=== PATIENT | male | born 1945 | race Hispanic/Latino ===

== ENCOUNTER 2021-05-12 19:44 | Inpatient (IN) | payer OTHER ==
[2021-05-12 20:34] LABS: Protime INR 1.19
[2021-05-12 20:47] LABS: Absolute Lymphocytes (CBC) 2.2 K/uL (0.7-4.9); Basophils % 0.8 % (0-1.3); Hematocrit 34.6 % (39.6-49.0); Lymphocytes % 21.2 % (15.3-44.8); MPV 7.9 fL (7.6-11.3); RBC Red Blood Cell Count 3.86 M/uL (4.33-5.43)
[2021-05-12] MEDS ORDERED: ALBUTEROL 2.5 MG/3 ML NEB SOL ONE (20:48)
[2021-05-12] MEDS ORDERED: IPRATROPIUM BROM 0.5MG/2.5ML ONE (20:48)
[2021-05-12 20:49] LABS: ALT/SGPT 47 U/L (12-78); AST/SGOT 35 U/L (15-37); Alkaline Phosphatase 88 U/L (45-117); BUN Blood Urea Nitrogen 10 mg/dL (7-18); Bicarbonate 24 mmol/L (21-32); Bilirubin Direct 0.1 mg/dL (0-0.2); Bilirubin Total 0.4 mg/dL (0.2-1.0); Glucose Level 118 mg/dL (74-106); Magnesium 2.7 mg/dL (1.8-2.4); NT PRO-BNP 218 pg/mL (<450); Potassium 3.8 mmol/L (3.5-5.1); Protein, Total 7.9 g/dL (6.4-8.2); Sodium Level 136 mmol/L (136-145); Troponin (Emerg Dept Use Only) < 0.02 ng/mL (0.0-0.045)
--- NOTE | 2021-05-12 21:41 | RAD REPORT ---
EXAM DESCRIPTION: Kayy Single View05/12/2021 9:24 pm CLINICAL HISTORY: Cough COMPARISON: 2016 FINDINGS: The lungs appear clear of acute infiltrate. The heart is normal size IMPRESSION: No acute abnormalities displayed
[2021-05-12] MEDS ORDERED: METHYLPREDNISOLONE 125 MG INJ ONE (22:29)
[2021-05-12] MEDS ORDERED: NA CHLORIDE 0.9% 1,000 ML ONE (22:44)
[2021-05-13] MEDS ORDERED: IPRATROPIUM BROM 0.5MG/2.5ML ONE (00:40)
[2021-05-13] MEDS ORDERED: ALBUTEROL 2.5 MG/3 ML NEB SOL ONE (00:40)
[2021-05-13] MEDS ORDERED: MAGNESIUM SULFATE 1 gm IVPB 1 GM/100 ML BAG IV ONE (00:56)
--- NOTE | 2021-05-13 01:19 | ER ---
Nurse's Notes [facility] Name: Kalen Pinedo Age: 76 yrs Sex: Male : 1945 Arrival Date: 05/12/2021 Time: 19:47 Bed 19 Private MD: Diagnosis: Dyspnea, unspecified Presentation: 05/12 19:54 Chief complaint: Patient states: cough and SOB x 2 weeks. 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 Coronavirus screen: Client denies travel out of the [place] in the last 14 days. cough unrelated to allergies, shortness of breath, Client presents with at least one sign or symptom that may indicate coronavirus-19. Standard/surgical mask placed on the client. Provider contacted for isolation considerations. Ebola Screen: Patient negative for fever greater than or equal to 101.5 degrees Fahrenheit, and additional compatible Ebola Virus Disease symptoms Patient denies exposure to infectious person. Patient denies travel to an Ebola-affected area in the 21 days before illness onset. No symptoms or risks identified at this time. Initial Sepsis Screen: Does the patient meet any 2 criteria? No. Patient's initial sepsis screen is negative. Does the patient have a suspected source of infection? No. Patient's initial sepsis screen is negative. Risk Assessment: Do you want to hurt yourself or someone else? Patient reports no desire to harm self or others. Onset of symptoms was May 12, 2021. 19:54 Method Of Arrival: Wheelchair ca1 19:54 Acuity: ARELY 3 ca1 Triage Assessment: 20:00 General: Appears in no apparent distress. Behavior is calm, cooperative. Respiratory: ak2 Reports cough that is Onset: The symptoms/episode began/occurred suddenly, the patient has mild shortness of breath. Historical: - Allergies: 19:56 No Known Allergies; ca1 - PMHx: 19:56 Hypertensive disorder; ca1 - Immunization history:: Client reports having NOT received the Covid vaccine. Pneumococcal vaccine is up to date, Flu vaccine is up to date. - Social history:: Smoking status: Patient denies any tobacco usage or history of. Screenin:59 Abuse screen: Denies threats or abuse. Denies injuries from another. Abuse screen: ak2 Denies threats or abuse. Nutritional screening: No deficits noted. Tuberculosis screening: No symptoms or risk factors identified. Fall Risk None identified. Assessment: 20:00 Pain: Denies pain. Cardiovascular: Rhythm is. Respiratory: Airway is patent Respiratory ak2 effort is even, unlabored, 22:03 Reassessment: Patient and/or family updated on plan of care and expected duration. Pain ak2 level reassessed. 23:18 Reassessment: Patient and/or family updated on plan of care and expected duration. Pain ak2 level reassessed. 05/13 01:46 General: report called to rn. ak2 Vital Signs: 05/12 19:54 BP 148 / 69; Pulse 65; Resp 18 S; Temp 97.6(TE); Pulse Ox 99% on R/A; Weight 81.65 kg ca1 (R); Height 5 ft. 11 in. (180.34 cm) (R); Pain 0/10; 22:03 BP 156 / 78; Pulse 68; Resp 18; Pulse Ox 98% on R/A; ak2 23:20 BP 159 / 83; Pulse 71; Resp 20; Pulse Ox 99% on R/A; ak2 05/13 00:41 BP 164 / 88; Pulse 66; Resp 20; Pulse Ox 100% on Nebulizer Mask; ak2 05/12 19:54 Body Mass Index 25.10 (81.65 kg, 180.34 cm) ca1 ED Course: 05/12 19:47 Patient arrived in ED. am4 19:56 Triage completed. ca1 19:56 Arm band placed on right wrist. ca1 19:57 Arnold Loya MD is Attending Physician. mh7 19:58 Chaitanya Law is Primary Nurse. ak2 19:59 Patient has correct armband on for positive identification. ak2 19:59 No provider procedures requiring assistance completed. ak2 21:24 XRAY Chest (1 view) In Process Unspecified. EDMS 23:10 CT Chest For PE Angio In Process Unspecified. EDMS 05/13 01:18 Kimani Bird MD is Hospitalizing Provider. mh7 Administered Medications: 05/12 20:29 Drug: Albuterol 2.5 mg Route: Inhalation; ak2 20:29 Drug: AtroVENT (ipratropium) Aerosol 0.5 mg Route: Inhalation; ak2 22:10 Drug: SOLU-Medrol (methylPrednisoLONE) 125 mg Route: IVP; Site: right antecubital; ak2 22:20 Drug: NS 0.9% 1000 ml Route: IV; Rate: 1000 ml; Site: right antecubital; ak2 05/13 00:20 Drug: AtroVENT (ipratropium) Aerosol 0.5 mg Route: Inhalation; ak2 00:21 Drug: Albuterol 2.5 mg Route: Inhalation; ak2 00:36 Drug: Magnesium Sulfate 1 grams Route: IVPB; Infused Over: 1 hrs; Site: right ak2 antecubital; Outcome: 01:19 Decision to Hospitalize by Provider. [facility] 01:44 Admitted to [facility] ak2 01:44 Condition: good 02:15 Patient left the ED. ar2 Signatures: Dispatcher [employer] EDMS Lou Card RN RN ca1 Holmes, Maurice, MD MD [facility] Rayna Guerra [facility] Chaitanya Law [facility]
--- NOTE | 2021-05-13 01:20 | EDPHYS ---
Physician Documentation [facility] Name: Kalen Pinedo Age: 76 yrs Sex: Male : 1945 Arrival Date: 05/12/2021 Time: 19:47 Bed 19 Private MD: ED Physician Arnold Loya HPI: 05/12 20:20 This 76 yrs old Male presents to ER via Wheelchair with complaints of mh7 Shortness Of Breath. 20:20 The patient has shortness of breath at rest, with light activity. Onset: The mh7 symptoms/episode began/occurred 2 week(s) ago, and became worse 4 day(s) ago. Duration: The symptoms are intermittent, with no pattern. The patient's shortness of breath is aggravated by coughing, exertion, light activity, is alleviated by nothing. Associated signs and symptoms: Pertinent positives: chest pain, non-productive cough, Pertinent negatives: productive cough, diaphoresis, dizziness, fever, hemoptysis, loss of consciousness, nausea, numbness in extremities, visual changes, vomiting. Severity of symptoms: At their worst the symptoms were moderate 4 day(s) ago, in the emergency department the symptoms are unchanged. Historical: - Allergies: 19:56 No Known Allergies; ca1 - PMHx: 19:56 Hypertensive disorder; ca1 - Immunization history:: Client reports having NOT received the Covid vaccine. Pneumococcal vaccine is up to date, Flu vaccine is up to date. - Social history:: Smoking status: Patient denies any tobacco usage or history of. ROS: 20:20 Constitutional: Negative for fever, chills, and weight loss, Eyes: Negative for injury, mh7 pain, redness, and discharge, ENT: Negative for injury, pain, and discharge, Neck: Negative for injury, pain, and swelling, Abdomen/GI: Negative for abdominal pain, nausea, vomiting, diarrhea, and constipation, Back: Negative for injury and pain, : Negative for injury, bleeding, discharge, and swelling, MS/Extremity: Negative for injury and deformity, Skin: Negative for injury, rash, and discoloration, Neuro: Negative for headache, weakness, numbness, tingling, and seizure, Psych: Negative for depression, anxiety, suicide ideation, homicidal ideation, and hallucinations, Allergy/Immunology: Negative for hives, rash, and allergies, Endocrine: Negative for neck swelling, polydipsia, polyuria, polyphagia, and marked weight changes, Hematologic/Lymphatic: Negative for swollen nodes, abnormal bleeding, and unusual bruising. Exam: 20:20 Constitutional: This is a well developed, well nourished patient who is awake, alert, mh7 and in no acute distress. Head/Face: Normocephalic, atraumatic. Eyes: Pupils equal round and reactive to light, extra-ocular motions intact. Lids and lashes normal. Conjunctiva and sclera are non-icteric and not injected. Cornea within normal limits. Periorbital areas with no swelling, redness, or edema. Neck: Trachea midline, no thyromegaly or masses palpated, and no cervical lymphadenopathy. Supple, full range of motion without nuchal rigidity, or vertebral point tenderness. No Meningismus. Chest/axilla: Normal chest wall appearance and motion. Nontender with no deformity. No lesions are appreciated. Cardiovascular: Regular rate and rhythm with a normal S1 and S2. No gallops, murmurs, or rubs. Normal PMI, no JVD. No pulse deficits. 20:20 Abdomen/GI: Soft, non-tender, with normal bowel sounds. No distension or tympany. No guarding or rebound. No evidence of tenderness throughout. Back: No spinal tenderness. No costovertebral tenderness. Full range of motion. Skin: Warm, dry with normal turgor. Normal color with no rashes, no lesions, and no evidence of cellulitis. MS/ Extremity: Pulses equal, no cyanosis. Neurovascular intact. Full, normal range of motion. Neuro: Awake and alert, GCS 15, oriented to person, place, time, and situation. Cranial nerves II-XII grossly intact. Motor strength 5/5 in all extremities. Sensory grossly intact. Cerebellar exam normal. Normal gait. Psych: Awake, alert, with orientation to person, place and time. Behavior, mood, and affect are within normal limits. 20:20 Respiratory: the patient does not display signs of respiratory distress, Respirations: prolonged exhalation, that is mild, Breath sounds: rhonchi, that are moderate, are heard diffusely, wheezing: expiratory that is mild, is scattered, Respiratory rate: 18 Vital Signs: 19:54 BP 148 / 69; Pulse 65; Resp 18 S; Temp 97.6(TE); Pulse Ox 99% on R/A; Weight 81.65 kg ca1 (R); Height 5 ft. 11 in. (180.34 cm) (R); Pain 0/10; 22:03 BP 156 / 78; Pulse 68; Resp 18; Pulse Ox 98% on R/A; ak2 23:20 BP 159 / 83; Pulse 71; Resp 20; Pulse Ox 99% on R/A; ak2 05/13 00:41 BP 164 / 88; Pulse 66; Resp 20; Pulse Ox 100% on Nebulizer Mask; nm2 05/12 19:54 Body Mass Index 25.10 (81.65 kg, 180.34 cm) ca1 MDM: 01:17 Differential diagnosis: Anemia Anxiety Reaction asthma, Bronchitis CHF exacerbation, mh7 Chronic Obstructive Pulmonary Disease Myocardial Infarction pneumonia, Pneumothorax Psychogenic pulmonary edema, Pulmonary Embolism reactive airway disease. Data reviewed: vital signs, nurses notes, lab test result(s), cardiac enzymes, CBC, electrolytes, EKG, radiologic studies, CT scan, plain films. Data interpreted: Pulse oximetry: on room air is 99 %. Interpretation: normal. Counseling: I had a detailed discussion with the patient and/or guardian regarding: the historical points, exam findings, and any diagnostic results supporting the discharge/admit diagnosis, the presence of at least one elevated blood pressure reading (>120/80) during this emergency department visit, lab results, radiology results, the need for further work-up and treatment in the hospital. Response to treatment: the patient's symptoms have mildly improved after treatment. 01:19 Patient medically screened. [facility] 05/12 20:15 Order name: Basic Metabolic Panel; Complete Time: 21:03 [facility] 05/12 20:15 Order name: CBC with Diff; Complete Time: 21:03 [facility] 05/12 20:15 Order name: LFT's; Complete Time: 21: [facility] 05/12 20:15 Order name: Magnesium; Complete Time: 21: [facility] 05/12 20:15 Order name: NT PRO-BNP; Complete Time: 21: [facility] 05/12 20:15 Order name: PT-INR; Complete Time: 21:03 [facility] 05/12 20:15 Order name: Troponin (emerg Dept Use Only); Complete Time: 21: [facility] 05/12 20:15 Order name: XRAY Chest (1 view); Complete Time: 21:59 [facility] 05/12 20:17 Order name: Influenza Screen (a \T\ B); Complete Time: 21:03 [facility] 05/12 22:03 Order name: SARS-COV-2 RT PCR; Complete Time: 22:04 [facility] 05/12 22:19 Order name: CT Chest For PE Angio [facility] 05/12 20:15 Order name: EKG; Complete Time: 20:16 [facility] 05/12 20:15 Order name: Cardiac monitoring [facility] 05/12 20:15 Order name: EKG - Nurse/Tech [facility] 05/12 20:15 Order name: IV Saline Lock [facility] 05/12 20:15 Order name: Labs collected and sent [facility] 05/12 20:15 Order name: O2 Per Protocol [facility] 05/12 20:15 Order name: O2 Sat Monitoring [facility] Administered Medications: 05/12 20:29 Drug: Albuterol 2.5 mg Route: Inhalation; [facility] 20:29 Drug: AtroVENT (ipratropium) Aerosol 0.5 mg Route: Inhalation; nm2 22:10 Drug: SOLU-Medrol (methylPrednisoLONE) 125 mg Route: IVP; Site: right antecubital; nm2 22:20 Drug: NS 0.9% 1000 ml Route: IV; Rate: 1000 ml; Site: right antecubital; [facility] 05/13 00:20 Drug: AtroVENT (ipratropium) Aerosol 0.5 mg Route: Inhalation; ak2 00:21 Drug: Albuterol 2.5 mg Route: Inhalation; nm2 00:36 Drug: Magnesium Sulfate 1 grams Route: IVPB; Infused Over: 1 hrs; Site: right [facility] antecubital; Disposition Summary: 05/13/21 01:19 Hospitalization Ordered Hospitalization Status: Observation [facility] Provider: Kimani Bird [facility] Location: Telemetry/MedSurg (observation) [facility] Condition: Stable [facility] Problem: an acute exacerbation [facility] Symptoms: have improved [facility] Bed/Room Type: Standard [facility] Room Assignment: 205(05/13/21 01:30) cg Diagnosis - Dyspnea, unspecified [facility] Forms: - Medication Reconciliation Form [facility] - SBAR form [facility] Signatures: Dispatcher [employer] Ángel Ledezma, RN RN Yamile Kumar RN RN cg Lou Card RN RN [facility] Arnold Loya MD MD [facility] Chaitanya Law [facility] Corrections: (The following items were deleted from the chart) 05/12 21:10 20:17 CORONAVIRUS+Z ordered. EDOH EDMS 05/13 01:30 01:19 Paola
[2021-05-13] MEDS ORDERED: ONDANSETRON 4 MG/2 ML VIAL IV PRN (01:51)
[2021-05-13] MEDS: IPRATROPIUM BROM 0.5MG/2.5ML NEB SCH ×4 (02:00→20:20)
[2021-05-13] MEDS: ALBUTEROL 2.5 MG/3 ML NEB SOL NEB SCH ×4 (02:00→20:20)
[2021-05-13 02:30] VITALS: BMI 32.3
--- NOTE | 2021-05-13 02:33 | P.HP ---
Certification for Inpatient Patient admitted to: Observation With expected LOS: <2 Midnights Patient will require the following post-hospital care: None Practitioner: I am a practitioner with admitting privileges, knowledge of patient current condition, hospital course, and medical plan of care. Services: Services provided to patient in accordance with Admission requirements found in Title 42 Section 412.3 of the Code of Federal Regulations Patient History Date of Service: 05/13/21 Primary Care Provider: Kristyn Holland NP Reason for admission: Dyspnea History of Present Illness: 76-year-old male with history of asbestos exposure likely COPD, hypertension presents emergency department for shortness of breath. Patient reports that he has a nebulizer at home that he typically only uses once every week or so but for the past 2-3 weeks he has had to use it on a daily basis. Patient evaluated in the emergency department, labs significant for hemoglobin 9.6 hematocrit 34.6 GFR 65 glucose 118, magnesium 2.7. Patient received IV steroids, nebulizers, magnesium in the emergency department and was still experi encing significant expiratory wheezing and dyspnea. ED provider wishes to admit for further evaluation and management. Allergies NKDA Allergy (Uncoded 12/20/15 17:23) Unknown - Past Medical/Surgical History Has patient received pneumonia vaccine in the past: Yes -: Hypertension -: Asbestos exposure (suspected COPD) -: none Psychosocial/ Personal History: Lives with family - Family History Family History: Reviewed- Non-Contributory - Social History Smoking Status: Never smoker Alcohol use: No CD- Drugs: No Caffeine use: Yes Place of Residence: Home Review of Systems 10-point ROS is otherwise unremarkable Respiratory: Shortness of Breath, SOB with Excertion, Wheezing Physical Examination - Vital Signs Temperature: 97.0 F Blood Pressure: 167/72 Pulse: 70 Respirations: 18 Pulse Ox (%): 96 - Physical Exam General: Alert, In no apparent distress HEENT: Atraumatic, PERRLA, Mucous membr. moist/pink Neck: Supple, 2+ carotid pulse no bruit, No LAD Respiratory: Expiratory wheezes, Other (Tachypneic, dyspnea,) Cardiovascular: Regular rate/rhythm, Normal S1 S2 Gastrointestinal: Normal bowel sounds, No tenderness Musculoskeletal: No tenderness Integumentary: No rashes Neurological: Normal speech, Normal strength at 5/5 x4 extr, Normal tone, Normal affect - Studies Laboratory Data (last 24 hrs) 05/12/21 20:20: PT 13.7 H, INR 1.19 05/12/21 20:20: WBC 10.20, Hgb 11.6 L, Hct 34.6 L, Plt Count 383 05/12/21 20:20: Sodium 136, Potassium 3.8, BUN 10, Creatinine 1.10, Glucose 118 H, Magnesium 2.7 H, Total Bilirubin 0.4, AST 35, ALT 47, Alkaline Phosphatase 88 Microbiology Data (last 24 hrs): 05/12/21 20:20 Nasopharnyx Influenza Type A Antigen Screen - Final 05/12/21 20:20 Nasopharnyx Influenza Type B Antigen Screen - Final Assessment and Plan - Plan Assessment Dyspnea, expiratory wheezing previously exposed to asbestos-suspect underlying COPD with exacerbation Hypertension Plan Dyspnea, expiratory wheezing previously exposed to asbestos-suspect underlying COPD with exacerbation: Continue with IV steroids, inhalers, scheduled nebs, incentive spirometry. Daily room air saturations, anticipate clinical improvement in the next 24-48 hr. DVT prophylaxis with SCDs. Patient need to follow up with pulmonology on outpatient basis for additional evaluation for possibility of underlying COPD. Hypertension: Continue home medications, adjust as necessary. Discharge Plan: Home Plan to discharge in: 24 Hours - Advance Directives Does patient have a Living Will: No Does patient have a Durable POA for Healthcare: No - Code Status/Comfort Care Code Status Assessed: Yes (Full code) Critical Care: No Time Spent Managing Pts Care (In Minutes): 55
[2021-05-13 05:45] LABS: Absolute Lymphocytes (CBC) 0.8 K/uL (0.7-4.9); Basophils % 0.5 % (0-1.3); Lymphocytes % 8.7 % (15.3-44.8); MPV 7.8 fL (7.6-11.3); RBC Red Blood Cell Count 3.98 M/uL (4.33-5.43)
[2021-05-13] MEDS: METHYLPREDNISOLONE 40 MG INJ IV SCH ×3 (05:50→22:10)
[2021-05-13 05:57] LABS: Bilirubin Total 0.4 mg/dL (0.2-1.0); Potassium 4.2 mmol/L (3.5-5.1); Protein, Total 8.4 g/dL (6.4-8.2); Thyroid Stimulating Hormone 0.841 uIU/mL (0.360-3.740)
[2021-05-13 07:29] LABS: Blood Morphology Comment NOT SEEN (NOT SEEN); Platelet Estimate INCR
[2021-05-13] MEDS: DULERA 200/5 (MOMETASONE/FORMOTEROL) INHALER IH SCH ×2 (09:11→20:59)
--- NOTE | 2021-05-13 11:10 | P.PN ---
Date of Service: 05/13/21 feeling slightly better. still SOB on oxygen reports intermittent leg swelling over last several weeks, progressively worsening OLIVER over last 4-6 weeks has been told before that his heart or valve needs to be monitored, he is unsure of specifics, unsure of meds he takes thinks he may have had an echo in the last month at [facility], and told it was ok Physical Exam NAD, AAOx3 PERRL, MMM bilateral faint crackles at bases, on 3 L NC, nonlabored regular rate/rhythm, no edema soft, notnender, nondistended abdomen Problem List acute hypoxemic respiratory failure secondary to acute CHF exacerbation vs COPD exacerbation Hypertension poor historian, denies h/o COPD, denies CHF history, but states dr told him "something about the heart needs to be watched" CTA with b/l small pleural effusions, pericardial effusion echo ordered will give 20mg IV lasix cardiology consulted continue steroids/inhalers/nebs for COPD VTE: lovenox Code: full Dispo: anticipate dc home in 24-48hrs
[2021-05-13] MEDS: lisinopriL 20 MG TAB PO SCH ×2 (12:20→20:58)
[2021-05-13] MEDS: FUROSEMIDE 20 MG/ 2ML VIAL IV SCH (12:20)
[2021-05-13] MEDS: carvediloL 25 MG TAB PO SCH ×2 (12:21→20:57)
--- NOTE | 2021-05-13 12:48 | RAD REPORT ---
EXAM DESCRIPTION: Chest For Pe Angio 05/12/2021 11:35 PM CDT CLINICAL HISTORY: 76 years, Male, Dyspnea;Cough COMPARISON: 12/20/2015. TECHNIQUE: Multiple transaxial tomograms of the chest were obtained from the lung apices through the lung bases utilizing 3 mm slice thickness at 3 mm interval reconstruction after the administration o f large bolus of IV contrast for complete opacification of the pulmonary arteries. Subsequent maximum intensity projection images were generated in the coronal and sagittal plane for r eview. This exam was performed according to our departmental dose-optimization protocol, which includes auto mated exposure control, adjustment of the mA and/or kV according to patient size and/or use of iterat zan reconstruction technique. FINDINGS: The lungs parenchyma demonstrate small trace right pleural effusion with minimal compressi ve atelectatic changes. There is a small left pleural effusion with compressive atelectatic changes. There is a small pericardial effusion measuring at its greatest width anteriorly laterally 14.5 mm. N o masses, nodules and/or consolidations are identified. The trachea mainstem bronchus demonstrate t o be normal. There is no significant pericardial or pleural effusions. The thoracic aorta demonstrate demonstrate to be within normal limits. No significant major dissectio n. Intimal aortic arch calcification extending into the descending portion. The heart is normal in si ze. No evidence for right ventricular strain. There are no significant coronary artery calcifications . There is no significant mediastinal and/or hilar lymphadenopathy. The axillary regions demonstrate to be clear. Pulmonary arteries demonstrate to be normal, no intraluminal defect are seen that would suggest pulmo nary embolus. The bone windows demonstrate mild diffuse bony osteopenia with anterior spondylosis a long the mid/lower thoracic spine. The visualized portions of the upper abdomen demonstrate to be unremarkable. IMPRESSION: No evidence for pulmonary embolism. Small trace right pleural effusion with minimal compressive atelectatic changes. Small left pleural effusion with compressive atelectatic changes. Small pericardial effusion. Electronically signed by: Darrel Mckenzie MD 05/12/2021 11:40 PM CDT Due to temporary technical issues with the PACS/Fluency reporting system, reports are being signed by the in house radiologist without review as a courtesy to ensure prompt reporting. The interpreting r adiologist is fully responsible for the content of the report.
[2021-05-13] MEDS: BENZONATATE 100 MG CAP PO PRN (13:55)
--- NOTE | 2021-05-13 16:07 | EKG ---
Test Date: 2021-05-12 Test Time: 20:05:57 Extrusion Press Adjuster: MEASUREMENT RESULTS: Intervals: Rate: 66 SD: 206 QRSD: 98 QT: 414 QTc: 434 Sodus: P: -3 SD: 206 QRS: 13 T: 33 INTERPRETIVE STATEMENTS: Normal sinus rhythm Normal ECG Compared to ECG 12/20/2015 15:19:58 Right superior axis no longer present Electronically Signed On 05-13-21 16:04:12 CDT by Markus Sellers
[2021-05-14] MEDS: BENZONATATE 100 MG CAP PO PRN ×2 (00:06→09:10)
[2021-05-14] MEDS: ALBUTEROL 2.5 MG/3 ML NEB SOL NEB SCH ×2 (02:10→08:34)
[2021-05-14] MEDS: IPRATROPIUM BROM 0.5MG/2.5ML NEB SCH ×2 (02:10→08:34)
[2021-05-14] MEDS: METHYLPREDNISOLONE 40 MG INJ IV SCH (05:31)
[2021-05-14 06:03] LABS: Absolute Lymphocytes (CBC) 1.4 K/uL (0.7-4.9); Basophils % 0.3 % (0-1.3); Hematocrit 36.1 % (39.6-49.0); Lymphocytes % 6.9 % (15.3-44.8); MPV 7.3 fL (7.6-11.3); RBC Red Blood Cell Count 3.99 M/uL (4.33-5.43)
[2021-05-14 06:15] LABS: Magnesium 2.8 mg/dL (1.8-2.4); Potassium 4.2 mmol/L (3.5-5.1)
--- NOTE | 2021-05-14 08:13 | ECHO ---
HEIGHT: 5 ft 11 in WEIGHT: 232 lb 4.8 oz DATE OF STUDY: 05/13/[address]: Kimani Bird MD 2-DIMENSIONAL: YES M.MODE: YES DOPPLER: YES COLOR FLOW: YES TDS: YES PORTABLE: DEFINITY: BUBBLE STUDY: DIAGNOSIS: CONGESTIVE HEART FAILURE CARDIAC HISTORY: CATHERIZATION: SURGERY: PROSTHETIC VALVE: PACEMAKER: MEASUREMENTS (cm) DIASTOLIC (NORMALS) SYSTOLIC (NORMALS) IVSd 1.2 (0.6-1.2) LA Diam (1.9-4.0) LVEF 69% LVIDd 3.7 (3.5-5.7) LVIDs 2.3 (2.0-3.5) %FS 38% LVPWd 1.4 (0.6-1.2) Ao Diam 3.5 (2.0-3.7) 2 DIMENSIONAL ASSESSMENT: RIGHT ATRIUM: NORMAL LEFT ATRIUM: NORMAL RIGHT VENTRICLE: NORMAL LEFT VENTRICLE: NORMAL TRICUSPID VALVE: NORMAL MITRAL VALVE: NORMAL PULMONIC VALVE: NORMAL AORTIC VALVE: NORMAL PERICARDIAL EFFUSION: NONE AORTIC ROOT: NORMAL LEFT VENTRICULAR WALL MOTION: NORMAL DOPPLER/COLOR FLOW: MILD TRICUSPID REGURGITATION COMMENTS: TECHNICALLY DIFFICULT STUDY. GROSSLY NORMAL LEFT VENTRICULAR SIZE AND FUNCTION. NO EFFUSION. TECHNOLOGIST: GEE RIVERA
[2021-05-14 08:28] VITALS: TEMP 97.8
[2021-05-14] MEDS: DULERA 200/5 (MOMETASONE/FORMOTEROL) INHALER IH SCH (09:00)
[2021-05-14] MEDS: ENOXAPARIN 40 MG/0.4 ML SQ SCH ×2 (09:00→09:09)
[2021-05-14 09:02] VITALS: O2SAT 95
[2021-05-14] MEDS: FUROSEMIDE 20 MG/ 2ML VIAL IV SCH (09:09)
[2021-05-14] MEDS: lisinopriL 20 MG TAB PO SCH (09:09)
[2021-05-14] MEDS: carvediloL 25 MG TAB PO SCH (09:10)
[2021-05-14 09:11] VITALS: BP 169/69
[2021-05-14] MEDS ORDERED: PNEUMOCOCCAL VACCINE 0.5 ML IMVAC ONE (10:00)
--- NOTE | 2021-05-14 10:35 | P.DS ---
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 Patient reports he used his nebulizer without significant improvement. Patient evaluated in the emergency department, labs significant for hemoglobin 9.6 hematocrit 34.6 GFR 65 glucose 118, magnesium 2.7. He was diagnosed with possible COPD and started on IV steroids, nebulizers, magnesium in the emergency department. Patient was still wheezing after treatment in the ED and was therefore admitted for further management. Hospital Course: Patient admitted to the medical floor and treated for COPD exacerbation with IV steroids, scheduled bronchodilators. Chest x-ray demonstrated small pleural effusion and pericardial effusion. Echocardiogram was unremarkable with normal EF. Patient's symptoms resolved with treatment. He is deemed stable for discharge today. Vital Signs/Physical Exam: Temp Pulse Resp BP Pulse Ox 97.8 F 77 18 169/69 H 94 05/14/21 08:00 05/14/21 09:10 05/14/21 08:00 05/14/21 09:10 05/14/21 08:00 General: Alert, In no apparent distress, Oriented x3 HEENT: Mucous membr. moist/pink Neck: JVD not distended Respiratory: Clear to auscultation bilaterally, Normal air movement Cardiovascular: No edema, Regular rate/rhythm, Normal S1 S2 Gastrointestinal: Soft and benign, Non-distended, No tenderness Musculoskeletal: No swelling Integumentary: No rashes Neurological: Normal strength at 5/5 x4 extr Laboratory Data at Discharge: WBC 19.70 K/uL (4.3-10.9) H D 05/14/21 05:40 Hgb 11.9 g/dL (13.6-17.9) L 05/14/21 05:40 Hct 36.1 % (39.6-49.0) L 05/14/21 05:40 Plt Count 473 K/uL (152-406) H 05/14/21 05:40 PT 13.7 SECONDS (9.5-12.5) H 05/12/21 20:20 INR 1.19 05/12/21 20:20 Sodium 138 mmol/L (136-145) 05/14/21 05:40 Potassium 4.2 mmol/L (3.5-5.1) 05/14/21 05:40 BUN 16 mg/dL (7-18) 05/14/21 05:40 Creatinine 1.10 mg/dL (0.55-1.3) 05/14/21 05:40 Glucose 152 mg/dL (74-106) H 05/14/21 05:40 Magnesium 2.8 mg/dL (1.8-2.4) H 05/14/21 05:40 Total Bilirubin 0.4 mg/dL (0.2-1.0) 05/13/21 05:13 AST 25 U/L (15-37) 05/13/21 05:13 ALT 44 U/L (12-78) 05/13/21 05:13 Alkaline Phosphatase 88 U/L (45-117) 05/13/21 05:13 Triglycerides 52 mg/dL (<150) 05/13/21 05:13 Cholesterol 161 mg/dL (<200) 05/13/21 05:13 HDL Cholesterol 37 mg/dL (40-60) L 05/13/21 05:13 Cholesterol/HDL Ratio 4.35 05/13/21 05:13 Home Medications: Carvedilol [Coreg] 1 tab PO BID 05/13/21 Lisinopril [Zestril] 1 tab PO BID 05/13/21 Albuterol Inhaler [Ventolin Inhaler*] 2 puff IH Q6H PRN #1 hfa.aer.ad 05/14/21 Benzonatate [Tessalon Perle*] 100 mg PO Q8H PRN #30 cap 05/14/21 Mometasone/Formoterol [Dulera 200 Mcg/5 Mcg Inhaler] 2 puff IH BID inhaler 05/14/21 Torsemide 10 mg PO DAILY #30 tablet 05/14/21 predniSONE [Deltasone] 40 mg PO DAILY #3 tab 05/14/21 New Medications: predniSONE [Deltasone] 40 mg PO DAILY #3 tab Benzonatate [Tessalon Perle*] 100 mg PO Q8H PRN #30 cap PRN Reason: Cough Torsemide 10 mg PO DAILY #30 tablet Albuterol Inhaler [Ventolin Inhaler*] 2 puff IH Q6H PRN #1 hfa.aer.ad PRN Reason: Shortness Of Breath Diet: AHA Activity: Ad kinsey Followup: ERNA FELICIANO [Primary Care Provider] - 1 Week (call to schedule appointment ) Time spent managing pt's care (in minutes): 28
--- NOTE | 2021-05-14 20:58 | CON ---
Date of Consultation: 05/13/2021 Reason For Consultation: Possible pericardial effusion. History Of Present Illness: Mr. Pinedo is a 76-year-old male with history of hypertension, COPD, a sbestosis, came in with shortness of breath. Has recently had a negative cardiac workup at Dr. Jeremy ward's office. Came in hypertensive with shortness of breath. Denied chest pain, nausea, vomiting, di aphoresis, PND, orthopnea, pedal edema, palpitation, or syncope. He denied any fever or chills or co ugh. Allergies: NONE. Review of Systems: Negative. Social History: Negative. Family History: Negative. Medications: At home include Coreg and Zestril. Physical Examination: Vital Signs: He was hypertensive with blood pressure 182/76. Vital signs otherwise stable, afebrile . HEENT: Negative. Neck: Supple without any bruit. Chest: Clear. Cardiac: Revealed a regular rhythm and rate with an S4 gallops. No murmurs or rubs. Abdomen: Benign. Extremities: Revealed no clubbing, cyanosis, or edema. Diagnostic Data: Fairly unremarkable except for the CT scan showing a possible pericardial effusion. Impression And Plan: 1.Shortness of breath secondary to chronic obstructive pulmonary disease and asbestosis. 2.Hypertension poorly controlled that need to be addressed. 3.Possible pericardial effusion. Echocardiogram is pending. No evidence of pericardial effusion on his physical examination. I will see what the echo shows before making further decisions. FATIMAH/LAURIE Voice ID: [id number] Report ID: [id number]
== END 2021-05-14 13:18 | disposition home or self-care (01) | DRG 190 ==
LOC: ER 19:44 → ERHOLD 05-13 00:31 → 2ND 05-13 01:41 → OBSVTOIN 05-14 07:55
PROVIDERS: ADMIT Hospitalist; ATTEND Hospitalist
DX: J44.1 Chronic obstructive pulmonary disease with (acute) exacerbation (principal); J96.01 Acute respiratory failure with hypoxia; I50.31 Acute diastolic (congestive) heart failure; I31.3 Pericardial effusion (noninflammatory); I11.0 Hypertensive heart disease with heart failure; Z77.090 Contact with and (suspected) exposure to asbestos; Z20.822 Contact with and (suspected) exposure to COVID-19
CPT/HCPCS: 36415; 71045; 71275; 80048; 80053; 80061; 80076; 83735; 83880; 84439; 84443; 84484; 85025; 85610; 87804; 93005; 93306; 94010; 94640; 96374; 96375; 99285; G0378; J1650; J1940; J2920; J2930; J3475; J7030; J7606; Q9967; U0003

== ENCOUNTER 2022-02-26 22:52 | Inpatient (IN) | payer OTHER ==
--- OUTSIDE RECORDS SUMMARY | 2022-02-26 22:55 | XMS REPORT | Continuity of Care Document ---
:1945 [address] [facility] t Address [address] [place] [address] Care Team Providers Name Role Phone TANYA BE Primary Care Physician Unavailable ABUNDIO HARPER Attending Clinician Unavailable RADIOLOGY Attending Clinician Unavailable Radiology Attending Clinician Unavailable Adamaris, Lab Main Attending Clinician Unavailable Stephanie IBARRA Attending Clinician Doctor Unassigned, Name Attending Clinician Unavailable DOUG HARPER Admitting Clinician Unavailable Payers Payer Name Policy Type Policy Number Effective Date Expiration Date S caitie MEDICARE PART A [id number] 2004 \T\ B 00:00:00 Problems Condition Condition Condition Status Onset Resolution Last Treating Co mments Source Name Details Category Date Date Treatment Clinician Date No known No known Disease Unive rs active active ity of problems problems [facility] Allergies, Adverse Reactions, Alerts Allergy Allergy Status Severity Reaction(s) Onset Inactive Treating Comm ents Source Name Type Date Date Clinician NO KNOWN Drug Active Univers ALLERGIE Class ity of S [facility] Social History Social Habit Start Date Stop Date Quantity Comments Source Alcohol intake 2016-12-12 2016-12-12 0 /d [facility] 00:00:00 00:00:00 [facility] Tobacco use and 2016-04-18 2016-04-18 Never used [facility] exposure 00:00:00 00:00:00 [facility] Sex Ass[birth year] [facility] 00:00:00 00:00:00 [facility] Smoking Status Start Date Stop Date Source Never smoker [facility] Medications Ordered Filled Start Stop Current Ordering Indication Dosage Frequency Signature Comments Components Source Medication Medication Date Date Medication? Clinician (SIG) Name Name ASCORBATE Yes Take by Univ ers CALCIUM 6-17 mouth. ity of (VITAMIN C 13:44: [place] ORAL) Medical Branch DIPHENHYDRA Yes Take by Un johana MINE HCL 6-17 mouth. ity of (ALLERGY 13:44: [place] [id number] Medical ORAL) Branch ASCORBATE Yes Take by Univ ers CALCIUM 6-17 mouth. ity of (VITAMIN C 13:44: [place] ORAL) Medical Branch DIPHENHYDRA Yes Take by Un johana MINE HCL 6-17 mouth. ity of (ALLERGY 13:44: [place] [address] Medical ORAL) Branch ASCORBATE Yes Take by Univ ers CALCIUM 6-17 mouth. ity of (VITAMIN C 13:44: [place] ORAL) Medical Branch DIPHENHYDRA Yes Take by Un johana MINE HCL 6-17 mouth. ity of (ALLERGY 13:44: [place] [address] Medical ORAL) Branch maalox/diph Yes 5mL Take 5 mL U nivers enhydrAMINE 6-17 by mouth ity of :lidocaine2 00:00: as needed [place] % viscous 00 for Oral Medica l 1:1:1 mucositis Branch (COMPOUNDED (swish and ) Susp spit). suspension maalox/diph Yes 5mL Take 5 mL U nivers enhydrAMINE 6-17 by mouth ity of :lidocaine2 00:00: as needed [place] % viscous 00 for Oral Medica l 1:1:1 mucositis Branch (COMPOUNDED (swish and ) Susp spit). suspension maalox/diph Yes 5mL Take 5 mL U nivers enhydrAMINE 6-17 by mouth ity of :lidocaine2 00:00: as needed [place] % viscous 00 for Oral Medica l 1:1:1 mucositis Branch (COMPOUNDED (swish and ) Susp spit). suspension Procedures Procedure Date / Time Performed Performing Clinician [facility] e ASSIGNMENT OF BENEFITS 2021-10-17 17:01:45 Doctor Unassigned, No [facility] Name Medical Branch Encounters Start End Encounter Admission Attending Care Care Encounter Source Date/Time Date/Time Type Type Clinicians Facility Department ID 2021-09-05 Outpatient R LEROY, [facility] OPH [id number] [facility] 17:21:48 ABUNDIO ity [facility] 2021-10-17 2021-10-17 Outpatient R RADIOLOGY [facility] [id number] Univers 11:06:02 23:59:00 ity of [facility] 2021-10-17 2021-10-17 Hospital Radiology [facility] [id number] Univers 11:06:02 23:59:00 Encounter CONOR [id number] ity [facility] [id number] [id number] [facility] [address] 2021-10-17 2021-10-17 Outpatient R RADIOLOGY [facility] [id number] Univers 11:15:00 11:15:00 [id number] ity [facility] 2021-10-17 2021-10-17 Refining Supervisor Adamaris, Adc Lab Main [facility] 1.2.8 [id number] Univers 11:00:00 11:15:00 Visit Abundio Brown [id number] ity [facility] [id number] [phone] Ca dical NAL [facility] 2021-10-17 2021-10-17 Orders Doctor PATRICK [id number] Univers 00:00:00 00:00:00 Only Unassigned, ANABELLE [id number] ity of [place] [facility] [id number] [place] as [id number] [facility] 009 Branch 2021-09-10 2021-09-10 Outpatient R LEROY, [facility] [id number] Univers 15:00:00 15:00:00 ABUNDIO [id number] ity of [facility] 2021-09-10 2021-09-10 Outpatient R LEROY, [facility] [id number] Univers 15:00:00 15:00:00 ABUNDIO derek [facility] Results This patient has no known results.
[2022-02-26] MEDS ORDERED: NA CHLORIDE 0.9% 1,000 ML ONE (23:49)
[2022-02-27 00:20] LABS: Absolute Lymphocytes (CBC) 2.5 K/uL (0.7-4.9); Hematocrit 39.4 % (39.6-49.0); Lymphocytes % 17.4 % (15.3-44.8); MPV 6.5 fL (7.6-11.3); RBC Red Blood Cell Count 4.72 M/uL (4.33-5.43)
[2022-02-27 00:21] LABS: Protime INR 0.97
[2022-02-27 00:41] LABS: Albumin 3.8 g/dL (3.4-5.0); Bilirubin Direct 0.2 mg/dL (0-0.2); Bilirubin Total 0.5 mg/dL (0.2-1.0); Magnesium 1.7 mg/dL (1.8-2.4); Potassium 3.9 mmol/L (3.5-5.1); Protein, Total 8.3 g/dL (6.4-8.2); Troponin High Sensitivity 8.1 pg/mL (<58.9)
--- NOTE | 2022-02-27 00:48 | ER ---
Nurse's Notes [facility] Name: Kalen Pinedo Age: 77 yrs Sex: Male : 1945 Arrival Date: 02/26/2022 Time: 22:53 Bed 4 Private MD: Diagnosis: Repeated falls;Unspecified injury of head, initial encounter;Hypo-osmolality and hyponatremia;Weakness;Hypomagnesemia Presentation: 02/26 23:26 Chief complaint: Patient's son or daughter states: pt had a fell from standing as6 position. positive LOC, positive nausea and vomiting. Coronavirus screen: At this time, the client does not indicate any symptoms associated with coronavirus-19. Ebola Screen: No symptoms or risks identified at this time. Initial Sepsis Screen: Does the patient meet any 2 criteria? No. Patient's initial sepsis screen is negative. Does the patient have a suspected source of infection? No. Patient's initial sepsis screen is negative. Risk Assessment: Do you want to hurt yourself or someone else? Patient reports no desire to harm self or others. Onset of symptoms was February 26, 2022. 23:26 Method Of Arrival: Wheelchair as6 23:26 Acuity: ARELY 3 as6 23:40 Care prior to arrival: None. Mechanism of Injury: Fall from standing position. Trauma as6 event details: Injury occurred in the [facility]. Trauma Activation: Not Applicable Physician: ED Physician; Name: ; Notified At: ; Arrived At: Physician: General Surgeon; Name: ; Notified At: ; Arrived At: Physician: Radiology; Name: ; Notified At: ; Arrived At: Physician: Respiratory; Name: ; Notified At: ; Arrived At: Physician: Lab; Name: ; Notified At: ; Arrived At: Historical: - Allergies: 23:37 No Known Allergies; as6 - Home Meds: 23:37 albuterol sulfate 0.63 mg/3 mL Nebulizer nebu [Active]; carvedilol 25 mg oral tab 1 tab as6 2 times per day [Active]; cetirizine 10 mg oral tab 1 tab once daily [Active]; hydrochlorothiazide 12.5 mg Oral cap 1 cap once daily [Active]; lisinopril 40 mg Oral tab 1 tab once daily [Active]; - PMHx: 23:37 Hypertensive disorder; as6 - Immunization history:: Client reports having NOT received the Covid vaccine. - Social history:: Smoking status: Patient denies any tobacco usage or history of. - Immunization history: Last tetanus immunization: unknown. - Family history:: not pertinent. Screenin/28 00:13 Abuse screen: Denies threats or abuse. Denies injuries from another. Nutritional as6 screening: No deficits noted. Tuberculosis screening: No symptoms or risk factors identified. Fall Risk Fall in past 12 months (25 points). IV access (20 points). Total Wilkerson Fall Scale indicates High Risk Score (45 or more points). Frequent Obs/Assessments Occuring Family Present and informed to notify staff if the need to leave the bedside As available patient and family educated on Fall Prevention Program and Strategies. Primary Survey: 00:12 NO uncontrolled hemorrhage observed. A: The patient is alert. Airway: patent. as6 Breathing/Chest: Respiratory pattern: regular, Respiratory effort: spontaneous, unlabored. Circulation: Skin color: pink, Skin temperature: warm. Disability Verbal Stimuli. Exposure/Environment: All clothing and personal items were removed. A warming method has been applied: A warm blanket has been provided to the patient. Reassessment Airway Airway Breathing/Chest Respiratory pattern Regular Respiratory effort Spontaneous Unlabored Circulation Pulses Palpable Disability Alert. Assessment: 00:11 General: Appears uncomfortable, Behavior is calm, cooperative, drowsy. Pain: Complains as6 of pain in face and forehead. Neuro: Level of Consciousness is obeys commands, lethargic, Oriented to person, place, time. Cardiovascular: Capillary refill < 3 seconds Patient's skin is warm and dry. Respiratory: Respiratory effort is even, unlabored, Respiratory pattern is regular, symmetrical. Derm: hematoma to left side of forehead. Vital Signs: 02/26 23:26 BP 186 / 68; Pulse 65 MON; Resp 18 S; Temp 97.8(O); Pulse Ox 100% on R/A; Weight 99.79 as6 kg (R); Height 5 ft. 11 in. (180.34 cm) (R); Pain 8/10; 02/27 01:00 BP 170 / 68; Pulse 67; Resp 21 S; Pulse Ox 98% on R/A; as6 02:00 BP 178 / 95; Pulse 69; Resp 17 S; Pulse Ox 100% on R/A; oe 03:00 BP 183 / 70; Pulse 73; Resp 18; Pulse Ox 98% on R/A; oe 04:00 BP 176 / 82; Pulse 72; Resp 18; Pulse Ox 93% on R/A; oe 05:00 BP 202 / 81; Pulse 79; Resp 11 S; Pulse Ox 96% on R/A; as6 02/26 23:26 Body Mass Index 30.68 (99.79 kg, 180.34 cm) as6 Xavi Coma Score: 02/26 23:37 Eye Response: spontaneous(4). Verbal Response: oriented(5). Motor Response: obeys krish commands(6). Total: 15. 02/27 00:14 Eye Response: to voice(3). Verbal Response: oriented(5). Motor Response: obeys as6 commands(6). Total: 14. Trauma Score (Adult): 00:14 Eye Response: to voice(0); Verbal Response: oriented(1); Motor Response: obeys as6 commands(2); Systolic BP: > 89 mm Hg(4); Respiratory Rate: 10 to 29 per min(4); Xavi Score: 14; Trauma Score: 11 ED Course: 02/26 22:53 Patient arrived in ED. kz 23:13 Julio Interiano, RN is Primary Nurse. as 23:14 Vinayak Bhatt MD is Attending Physician. [facility] 23:37 Triage completed. as6 23:40 Arm band placed on. 02/27 00:02 Inserted saline lock: 20 gauge in right antecubital area, using aseptic technique. as6 Blood collected. 00:09 SARS-COV-2 RT PCR (Document "Date of Onset" if Symptomatic) Sent. 00:09 Troponin HS Sent. as6 00:10 PT-INR Sent. as 00:10 NT PRO-BNP Sent. 00:10 Magnesium Sent. 00:10 LFT's Sent. 00:10 CBC with Diff Sent. 00:10 Basic Metabolic Panel Sent. 00:14 Placed in gown. Bed in low position. Call light in reach. Side rails up X2. Adult w/ as6 patient. quality assurance monitor on. Pulse ox on. NIBP on. 00:14 Patient maintains SpO2 saturation greater than 95% on room air. Thermoregulation: warm as6 blanket given to patient. 00:16 XRAY Chest (1 view) In Process Unspecified. EDMS 00:46 Frances Wakefield MD is Hospitalizing Provider. krish 01:44 Head C Spine Mpr Wo Con In Process Unspecified. EDMS 05:55 No provider procedures requiring assistance completed. Patient admitted, IV remains in as6 place. Administered Medications: 00:44 Discontinued: NS 0.9% 1000 ml IV at 125 ml/hr continuous krish 00:09 Drug: NS 0.9% 1000 ml Route: IV; Rate: 125 ml/hr; Site: right antecubital; as6 02:03 Follow up: Response: No adverse reaction; IV Status: Order to discontinue infusion; IV as6 Intake: 150ml 02:02 Drug: Magnesium Sulfate 1 grams Route: IVPB; Infused Over: 1 hrs; Site: right as6 antecubital; 05:55 Follow up: Response: No adverse reaction; IV Status: Completed infusion; IV Intake: as6 100ml 02:03 Drug: NS 0.9% 500 ml Route: IV; Rate: bolus; Site: right antecubital; as6 05:55 Follow up: Response: No adverse reaction; IV Status: Completed infusion; IV Intake: as6 500ml 02:03 Drug: NS 0.9% 1000 ml Route: IV; Rate: 75 ml/hr; Site: right antecubital; as6 05:56 Follow up: IV Status: Infusion continued upon admission as6 02:03 Drug: SOLU-Medrol (methylPrednisoLONE) 125 mg Route: IVP; Site: right antecubital; as6 05:56 Follow up: Response: No adverse reaction as6 02:03 Drug: Albuterol 2.5 mg Route: Inhalation; as6 02:03 Drug: Albuterol 2.5 mg Route: Inhalation; as6 Intake: 00:14 PO: 50ml (Water); Total: 50ml. as6 02:03 IV: 150ml; Total: 200ml. as6 05:55 IV: 100ml; Total: 300ml. as6 05:55 IV: 500ml; Total: 800ml. as6 Outcome: 00:48 Decision to Hospitalize by Provider. krish 02:26 Patient's length of stay in the Emergency Department was greater than 2 hours. as6 Patient's length of stay was extended due to no available ICU beds in the hospital. Patient's length of stay was extended due to staffing issues within the emergency department. 05:55 Admitted to ER Hold. Please see [facility] for further documentation. as6 05:55 Condition: stable 05:55 Instructed on the need for admit. 17:52 Patient left the ED. ll1 Signatures: Dispatcher [employer] EDMS Vinayak Bhatt MD MD cha Espinosa, [place] oe Steff Guerra RN RN ll1 Julio Interiano RN RN as6 Yulissa Forrester Corrections: (The following items were deleted from the chart) 04:21 02:27 BP 178 / 95; Pulse 69bpm; Resp 17bpm; Spontaneous; Pulse Ox 100% RA; as6 oe
--- NOTE | 2022-02-27 00:49 | EDPHYS ---
Physician Documentation [facility] Name: Kalen Pinedo Age: 77 yrs Sex: Male : 1945 Arrival Date: 02/26/2022 Time: 22:53 Bed 4 Private MD: ED Physician Vinayak Bhatt HPI: 02/26 23:31 This 77 yrs old Male presents to ER via Unassigned with complaints of Fall krish Injury. 23:31 Details of fall: The patient fell from an upright position, while walking. Onset: The krish symptoms/episode began/occurred 3 day(s) ago. Associated injuries: The patient sustained injury to the head, contusion. Severity of symptoms: At their worst the symptoms were mild, moderate, in the emergency department the symptoms are unchanged. The patient has experienced a previous episode. Historical: - Allergies: 23:37 No Known Allergies; as6 - Home Meds: 23:37 albuterol sulfate 0.63 mg/3 mL Nebulizer nebu [Active]; carvedilol 25 mg oral tab 1 tab as6 2 times per day [Active]; cetirizine 10 mg oral tab 1 tab once daily [Active]; hydrochlorothiazide 12.5 mg Oral cap 1 cap once daily [Active]; lisinopril 40 mg Oral tab 1 tab once daily [Active]; - PMHx: 23:37 Hypertensive disorder; as6 - Immunization history:: Client reports having NOT received the Covid vaccine. - Social history:: Smoking status: Patient denies any tobacco usage or history of. - Immunization history: Last tetanus immunization: unknown. - Family history:: not pertinent. ROS: 23:35 Constitutional: Negative for fever, chills, and weight loss, Eyes: Negative for injury, krish pain, redness, and discharge, ENT: Negative for injury, pain, and discharge, Neck: Negative for injury, pain, and swelling, Cardiovascular: Negative for chest pain, palpitations, and edema, Respiratory: Negative for shortness of breath, cough, wheezing, and pleuritic chest pain, Abdomen/GI: Negative for abdominal pain, nausea, vomiting, diarrhea, and constipation, Back: Negative for injury and pain, : Negative for injury, bleeding, discharge, and swelling, MS/Extremity: Negative for injury and deformity, Skin: Negative for injury, rash, and discoloration, Psych: Negative for depression, anxiety, suicide ideation, homicidal ideation, and hallucinations, Allergy/Immunology: Negative for hives, rash, and allergies, Endocrine: Negative for neck swelling, polydipsia, polyuria, polyphagia, and marked weight changes, Hematologic/Lymphatic: Negative for swollen nodes, abnormal bleeding, and unusual bruising. 23:35 Neuro: Positive for headache, of the forehead. Exam: 23:35 Constitutional: This is a well developed, well nourished patient who is awake, alert, krish and in no acute distress. Eyes: Pupils equal round and reactive to light, extra-ocular motions intact. Lids and lashes normal. Conjunctiva and sclera are non-icteric and not injected. Cornea within normal limits. Periorbital areas with no swelling, redness, or edema. ENT: Nares patent. No nasal discharge, no septal abnormalities noted. Tympanic membranes are normal and external auditory canals are clear. Oropharynx with no redness, swelling, or masses, exudates, or evidence of obstruction, uvula midline. Mucous membranes moist. Neck: Trachea midline, no thyromegaly or masses palpated, and no cervical lymphadenopathy. Supple, full range of motion without nuchal rigidity, or vertebral point tenderness. No Meningismus. Chest/axilla: Normal chest wall appearance and motion. Nontender with no deformity. No lesions are appreciated. Cardiovascular: Regular rate and rhythm with a normal S1 and S2. No gallops, murmurs, or rubs. Normal PMI, no JVD. No pulse deficits. Respiratory: Lungs have equal breath sounds bilaterally, clear to auscultation and percussion. No rales, rhonchi or wheezes noted. No increased work of breathing, no retractions or nasal flaring. Abdomen/GI: Soft, non-tender, with normal bowel sounds. No distension or tympany. No guarding or rebound. No evidence of tenderness throughout. Back: No spinal tenderness. No costovertebral tenderness. Full range of motion. Male : Normal genitalia with no discharge or lesions. Skin: Warm, dry with normal turgor. Normal color with no rashes, no lesions, and no evidence of cellulitis. 23:35 Neuro: Orientation: is normal, appropriate for stated age, no acute changes, Mentation: is normal, appropriate for stated age, no acute changes, Memory: is normal, appropriate for stated age, no acute changes, Cranial nerves: grossly normal, is grossly normal based on the patient's age, no acute changes, Cerebellar function: is grossly normal, is grossly normal based on the patient's age, no acute changes, Motor: is normal, is grossly normal based on the patient's age, no acute changes, moves all fours, Gait: not tested. seizure activity, is not displayed by the patient. 02/27 00:49 ECG was reviewed by the Attending Physician. [facility] Vital Signs: 02/26 23:26 BP 186 / 68; Pulse 65 MON; Resp 18 S; Temp 97.8(O); Pulse Ox 100% on R/A; Weight 99.79 as6 kg (R); Height 5 ft. 11 in. (180.34 cm) (R); Pain 8/10; 02/27 01:00 BP 170 / 68; Pulse 67; Resp 21 S; Pulse Ox 98% on R/A; as6 02:00 BP 178 / 95; Pulse 69; Resp 17 S; Pulse Ox 100% on R/A; oe 03:00 BP 183 / 70; Pulse 73; Resp 18; Pulse Ox 98% on R/A; oe 04:00 BP 176 / 82; Pulse 72; Resp 18; Pulse Ox 93% on R/A; oe 05:00 BP 202 / 81; Pulse 79; Resp 11 S; Pulse Ox 96% on R/A; as6 02/26 23:26 Body Mass Index 30.68 (99.79 kg, 180.34 cm) as6 [place] Coma Score: 02/26 23:37 Eye Response: spontaneous(4). Verbal Response: oriented(5). Motor Response: obeys krish commands(6). Total: 15. 02/27 00:14 Eye Response: to voice(3). Verbal Response: oriented(5). Motor Response: obeys as6 commands(6). Total: 14. Trauma Score (Adult): 00:14 Eye Response: to voice(0); Verbal Response: oriented(1); Motor Response: obeys as6 commands(2); Systolic BP: > 89 mm Hg(4); Respiratory Rate: 10 to 29 per min(4); Xavi Score: 14; Trauma Score: 11 MDM: 02/26 23:14 Patient medically screened. [facility] 23:37 Differential diagnosis: Contusion of Hematoma on Intracranial bleed- Concussion without krish LOC. cerebral contusion. Differential diagnosis: closed head injury, contusion, fracture, laceration, multiple trauma, sprain, strain. Data reviewed: vital signs, nurses notes, lab test result(s), EKG, radiologic studies, CT scan, plain films. Data interpreted: customer program manager: rate is 69 beats/min, rhythm is regular, Pulse oximetry: on room air is 100 %. Test interpretation: by ED physician or midlevel provider: ECG, plain radiologic studies. Counseling: I had a detailed discussion with the patient and/or guardian regarding: the historical points, exam findings, and any diagnostic results supporting the discharge/admit diagnosis, lab results, radiology results, the need for outpatient follow up. 02/26 23:35 Order name: Basic Metabolic Panel; Complete Time: 00:45 [facility] 02/26 23:35 Order name: CBC with Diff; Complete Time: 00:45 [facility] 02/26 23:35 Order name: LFT's; Complete Time: 00:45 [facility] 02/26 23:35 Order name: Magnesium; Complete Time: 00:45 [facility] 02/26 23:35 Order name: NT PRO-BNP; Complete Time: 00:45 [facility] 02/26 23:35 Order name: PT-INR; Complete Time: 00:30 [facility] 02/26 23:35 Order name: Troponin HS; Complete Time: 00:45 [facility] 02/26 23:35 Order name: SARS-COV-2 RT PCR (Document "Date of Onset" if Symptomatic); Complete Time: [facility] 01:02/27 00:44 Order name: Urine Sodium Random [facility] 02/27 00:44 Order name: Osmolality, Serum [facility] 02/27 00:44 Order name: Urine Osmolality [facility] 02/27 00:50 Order name: Cortisol tw5 02/27 00:50 Order name: TSH tw5 02/27 02:00 Order name: Urine Microscopic Only la1 02/26 23:35 Order name: XRAY Chest (1 view) [facility] 02/27 00:52 Order name: Head C Spine Mpr Wo Con [facility] 02/27 02:04 Order name: Urine Dipstick-Ancillary [facility] 02/27 03:21 Order name: Urine Microscopic Only [facility] 02/27 04:58 Order name: Basic Metabolic Panel [facility] 02/27 04:58 Order name: Magnesium [facility] 02/27 10:13 Order name: Basic Metabolic Panel [facility] 02/27 14:23 Order name: Basic Metabolic Panel [facility] 02/26 23:35 Order name: EKG; Complete Time: 23:37 [facility] 02/26 23:35 Order name: Cardiac monitoring; Complete Time: 23:40 [facility] 02/26 23:35 Order name: EKG - Nurse/Tech; Complete Time: 00:09 [facility] 02/26 23:35 Order name: IV Saline Lock; Complete Time: 00:09 [facility] 02/26 23:35 Order name: Labs collected and sent; Complete Time: 00: [facility] 02/26 23:35 Order name: O2 Per Protocol; Complete Time: 23:40 [facility] 02/26 23:35 Order name: O2 Sat Monitoring; Complete Time: 23:40 [facility] 02/26 23:35 Order name: Urine Dipstick-Ancillary (obtain specimen); Complete Time: 02:03 [facility] 02/26 23:35 Order name: Ice pack; Complete Time: 00:09 [facility] 02/27 00:48 Order name: Seizure Precautions; Complete Time: 02:02 [facility] EC/28 00:49 Rate is 66 beats/min. Rhythm is regular. QRS [place] is Normal. VT interval is normal. QRS krish interval is normal. QT interval is normal. No Q waves. T waves are Normal. No ST changes noted. Clinical impression: NSR w/ Non-specific ST/T Changes and No evidence of ischemia. Interpreted by me. Reviewed by me. Administered Medications: 00:44 Discontinued: NS 0.9% 1000 ml IV at 125 ml/hr continuous krish 00:09 Drug: NS 0.9% 1000 ml Route: IV; Rate: 125 ml/hr; Site: right antecubital; as6 02:03 Follow up: Response: No adverse reaction; IV Status: Order to discontinue infusion; IV as6 Intake: 150ml 02:02 Drug: Magnesium Sulfate 1 grams Route: IVPB; Infused Over: 1 hrs; Site: right as6 antecubital; 05:55 Follow up: Response: No adverse reaction; IV Status: Completed infusion; IV Intake: as6 100ml 02:03 Drug: NS 0.9% 500 ml Route: IV; Rate: bolus; Site: right antecubital; as6 05:55 Follow up: Response: No adverse reaction; IV Status: Completed infusion; IV Intake: as6 500ml 02:03 Drug: NS 0.9% 1000 ml Route: IV; Rate: 75 ml/hr; Site: right antecubital; as6 05:56 Follow up: IV Status: Infusion continued upon admission as6 02:03 Drug: SOLU-Medrol (methylPrednisoLONE) 125 mg Route: IVP; Site: right antecubital; as6 05:56 Follow up: Response: No adverse reaction as6 02:03 Drug: Albuterol 2.5 mg Route: Inhalation; 02:03 Drug: Albuterol 2.5 mg Route: Inhalation; as6 Disposition Summary: 02/27/22 00:48 Hospitalization Ordered Hospitalization Status: Inpatient Admission krish Provider: Frances Wakefield cha Condition: Fair krish Problem: new krish Symptoms: have improved krish Bed/Room Type: Standard krish Location: Telemetry/MedSurg (Inpatient)(02/27/22 16:33) ja1 Room Assignment: [facility](02/27/22 16:33) ja Diagnosis - Repeated falls krsih - Unspecified injury of head, initial encounter krish - Hypo-osmolality and hyponatremia krish - Weakness krish - Hypomagnesemia krish Forms: - Medication Reconciliation Form krish - SBAR form krish Signatures: Dispatcher [employer] EDMS Vinayak Bhatt MD MD cha Attema, Lee, FORESTRY CONSULTANT-C FORESTRY CONSULTANT-Cla1 Santiago Pickett RN RN ja1 Chantelle Moses RN RN eb1 Julio Interiano RN RN as6 Corrections: (The following items were deleted from the chart) 01:48 00:48 Telemetry/MedSurg (Inpatient) krish eb1 01:48 00:48 krish eb1 16:33 01:48 [facility] ER HOLD eb1 ja1 16:33 01:48 ERHOLD- eb1 ja
[2022-02-27] MEDS ORDERED: METHYLPREDNISOLONE 125 MG INJ ONE (01:44)
[2022-02-27] MEDS ORDERED: ALBUTEROL 2.5 MG/3 ML NEB SOL ONE (01:45)
[2022-02-27] MEDS ORDERED: MAGNESIUM SULFATE 1 gm IVPB 1 GM/100 ML BAG IV ONE (01:45)
[2022-02-27] MEDS ORDERED: NA CHLORIDE 0.9% 500 ML ONE (01:45)
[2022-02-27] MEDS: NA CHLORIDE 0.9% 1,000 ML IV SCH ×3 (02:00→16:53)
[2022-02-27 02:03] LABS: Urine Blood Trace-lysed (Negative); Urine Glucose Negative (Negative); Urine Protein Negative (Negative); Urine Specific Gravity 1.015 (1.005-1.030); Urine pH 6.5 (5.0-7.0)
--- NOTE | 2022-02-27 02:14 | P.HP ---
Certification for Inpatient Patient admitted to: Inpatient With expected LOS: >2 Midnights Patient will require the following post-hospital care: None Practitioner: I am a practitioner with admitting privileges, knowledge of patient current condition, hospital course, and medical plan of care. Services: Services provided to patient in accordance with Admission requirements found in Title 42 Section 412.3 of the Code of Federal Regulations Patient History Date of Service: 02/27/22 Reason for admission: Hyponatremia History of Present Illness: 77-year-old male with history of hypertension, COPD/asbestosis, suspected chronic diastolic congestive heart failure presents emergency department for dizziness, falls generalized weakness over the course of the last 2 weeks or so. Family reports that he was having some shortness of breath and his primary care doctor increased his hydrochlorothiazide from once a day to twice a day patient also reports diarrhea over the course of the last few days and poor oral intake. His labs were significant for sodium of 118 chloride of 81 creatinine 1.46 GFR 47 magnesium 1.7 BNP 93 chest x-ray does not show any signs of volume overload. Patient was started on NS at 75 cc an hour ED provider wishes to admit for hyponatremia. Allergies NKDA Allergy (Uncoded 12/20/15 17:23) Unknown Home Medications: Carvedilol [Coreg] 1 tab PO BID 05/13/21 Lisinopril [Zestril] 1 tab PO BID 05/13/21 Albuterol Inhaler [Ventolin Inhaler*] 2 puff IH Q6H PRN #1 hfa.aer.ad 05/14/21 Benzonatate [Tessalon Perle*] 100 mg PO Q8H PRN #30 cap 05/14/21 Mometasone/Formoterol [Dulera 200 Mcg/5 Mcg Inhaler] 2 puff IH BID inhaler 05/14/21 Torsemide 10 mg PO DAILY #30 tablet 05/14/21 predniSONE [Deltasone] 40 mg PO DAILY #3 tab 05/14/21 - Past Medical/Surgical History Diabetic: No -: Hypertension -: Asbestos exposure (suspected COPD) -: Suspected chronic diastolic congestive heart failure -: none Psychosocial/ Personal History: Lives with family - Family History Father Notes: pt adopted - Social History Smoking Status: Never smoker Alcohol use: No CD- Drugs: No Caffeine use: Yes Place of Residence: Home Review of Systems 10-point ROS is otherwise unremarkable General: Weakness Neurological: Weakness, Other (Dizziness, frequent falls) Physical Examination - Physical Exam General: Alert, In no apparent distress, Oriented x2 HEENT: Atraumatic, PERRLA, Mucous membr. moist/pink, EOMI, Sclerae nonicteric Neck: Supple, 2+ carotid pulse no bruit, No LAD, Without JVD or thyroid abnormality Respiratory: Clear to auscultation bilaterally, Normal air movement Cardiovascular: Regular rate/rhythm, Normal S1 S2 Gastrointestinal: Normal bowel sounds, No tenderness Musculoskeletal: No tenderness Integumentary: No rashes Neurological: Normal speech, Normal strength at 5/5 x4 extr, Normal tone, Normal affect Lymphatics: No axilla or inguinal lymphadenopathy - Studies Laboratory Data (last 24 hrs) 02/26/22 23:59: PT 10.7, INR 0.97 02/26/22 23:59: WBC 14.3 H, Hgb 13.9, Hct 39.4 L, Plt Count 358 02/26/22 23:59: Sodium 118 L*, Potassium 3.9, BUN 15, Creatinine 1.46 H, Glucose 134 H, Magnesium 1.7 L D, Total Bilirubin 0.5, AST 26, ALT 28, Alkaline Phosphatase 72 Assessment and Plan - Plan Assessment: Hyponatremiasuspect hypovolemic Hypertension COPD/asbestosis Suspected chronic diastolic congestive heart failure Plan: Hyponatremiasuspect hypovolemic: Patient given 500 cc NS bolus in ER continue with NS at 75 cc/h followed by every 4 BMP. Urine and serum osmolality ordered as well as urine sodium, cortisol, TSH. Nephrology consulted for additional assistance. Patient currently oriented x2 in no significant distress his hydrochlorothiazide was recently doubled by his primary care doctor also reports diarrhea over the course of the last few days in addition to overall poor oral intake. Patient does not appear to be volume overloaded at this time. Hypertension: Continue medications hold hydrochlorothiazide/diuretics COPD/asbestosis: As needed breathing treatments Suspected chronic diastolic congestive heart failure: Hold diuretics at this time given hyponatremia no signs of volume overload. Most recent echocardiogram with normal ejection fraction. Chest x-ray negative BNP normal. DVT PPX: Lovenox Code status: Full Discharge Plan: Home Plan to discharge in: 72 Hours - Advance Directives Does patient have a Living Will: Yes Does patient have a Durable POA for Healthcare: No - Code Status/Comfort Care Code Status Assessed: Yes (Full code) Critical Care: No Time Spent Managing Pts Care (In Minutes): 55
[2022-02-27 03:20] LABS: Urine Bacteria <20 /HPF (NONE SEEN)
[2022-02-27 03:21] LABS: Urine RBC <5 /HPF (NONE SEEN)
[2022-02-27 04:55] LABS: Magnesium 1.8 mg/dL (1.8-2.4); Potassium 4.1 mmol/L (3.5-5.1)
[2022-02-27] MEDS ORDERED: HYDRALAZINE HCL 20 MG/ML VIAL ONE (06:49)
[2022-02-27] MEDS ORDERED: ONDANSETRON 4 MG/2 ML VIAL ONE (06:50)
[2022-02-27 07:31] VITALS: BMI 30.2
[2022-02-27] MEDS ORDERED: ENOXAPARIN 40 MG/0.4 ML SQ ONE (08:41)
[2022-02-27] MEDS: ENOXAPARIN 40 MG/0.4 ML SQ SCH (08:49)
[2022-02-27] MEDS: HYDRALAZINE HCL 20 MG/ML VIAL IV PRN ×2 (08:50→18:43)
[2022-02-27] MEDS: ONDANSETRON 4 MG/2 ML VIAL IV PRN ×2 (08:50→23:41)
[2022-02-27 10:10] LABS: Potassium 4.1 mmol/L (3.5-5.1)
--- NOTE | 2022-02-27 12:41 | RAD REPORT ---
EXAM DESCRIPTION: CT - Head C Spine Mpr Con - 02/27/2022 6:01 am CLINICAL HISTORY: 77 years, Male, fall COMPARISON: None. FINDINGS: Multiple transaxial tomograms of the brain were obtained from the base of the skull to the vertex without contrast. 2-D multiplanar reformats and the coronal and sagittal plane were performed and reviewed. This exam was performed according to our departmental dose-optimization protocol, which includes auto mated exposure control, adjustment of the mA and/or kV according to patient size and/or use of iterat zan reconstruction technique. Brain parenchyma demonstrate mild prominence of the sulci and gyri are corresponding to mild cerebral and cerebellar atrophy. There is very minimal periventricular white matter changes of microvascular ischemia. There is no midline shift and/or mass effect. There is no evidence for acute intracranial h emorrhage. Lateral ventricles and cisterns displace normal appearance. No intra or extra axial fl uid collections were seen. The calvarium is intact with no evidence for fracture. The visualized port ions of the paranasal sinuses and orbits demonstrate to be clear. Incidentally is noted the presence of left frontal increase soft tissue density corresponding to a superficial side of contusion. EXAM DESCRIPTION: Head C Spine Mpr [facility] 02/27/2022 1:53 AM CDT CLINICAL HISTORY: 77 years, Male, fall COMPARISON: None TECHNIQUE: Multiple axial CT images through the cervical spine were obtained at 2 mm slice thickness at 2 mm interval reconstruction. In addition 2-D multiplanar reformats and the sagittal coronal plan e were performed and reviewed. This exam was performed according to our departmental dose-optimization protocol, which includes auto mated exposure control, adjustment of the mA and/or kV according to patient size and/or use of iterat zan reconstruction technique. FINDINGS: The alignment of the vertebral bodies that the are normal. There is no evidence of fract ure or subluxation. There is degenerative disc disease with decreased intervertebral disc height, ant erior spondylosis and posterior osteophyte complex at C5/C6, C6/C7 and C7/T1. There is no evidence fo r significant spinal canal narrowing. Minimal neural foraminal narrowing at C4/C5 and C6/C7. There ar e uncovertebral degenerative changes C2-T1. There is no prevertebral soft tissue swelling. The visual ized lung apices demonstrate to be unremarkable. Sagittal coronal reformatted images demonstrate no s ubluxation or bony abnormalities. IMPRESSION: No acute intracranial hemorrhage. Mild brain atrophy with very minimal periventricular white matter changes of microvascular ischemia. Left frontal superficial contusion. No acute fractures or subluxation of the cervical spine. Degenerative disc disease at C5/C6, C6/C7 and C7/T1. Minimal neural foraminal narrowing at C4/C5 and C6/C7. Electronically signed by: Darrel Mckenzie MD 02/27/2022 1:56 AM CDT Due to temporary technical issues with the PACS/Fluency reporting system, reports are being signed by the in house radiologist without review as a courtesy to ensure prompt reporting. The interpreting r adiologist is fully responsible for the content of the report.
--- NOTE | 2022-02-27 12:54 | RAD REPORT ---
EXAM DESCRIPTION: RAD - Chest Single View - 02/27/2022 12:14 am CLINICAL HISTORY: COUGH COMPARISON: None. TECHNIQUE: XR CHEST 1 VIEW 02/26/2022 11:35 PM CDT FINDINGS: The heart is borderline in size. Lungs are clear without consolidation, atelectasis, mass or edema. There is no pleural effusion. There is no pneumothorax. There are no acute osseous findings . IMPRESSION: Clear lungs. Electronically signed by: Raul Oscar MD 02/27/2022 12:23 AM CDT Due to temporary technical issues with the PACS/Fluency reporting system, reports are being signed by the in house radiologist without review as a courtesy to ensure prompt reporting. The interpreting r adiologist is fully responsible for the content of the report.
[2022-02-27] MEDS ORDERED: FUROSEMIDE 40 MG TABLET PO ONE (14:20)
[2022-02-27 14:22] LABS: Potassium 4.2 mmol/L (3.5-5.1)
[2022-02-27] MEDS: HYDROCODONE/APAP 5/325 MG TAB PO PRN ×2 (14:29→20:31)
[2022-02-27] MEDS ORDERED: HYDROCODONE/APAP 5/325 MG TAB ONE (14:35)
--- NOTE | 2022-02-27 16:47 | P.CNS ---
Date of Consult: 02/27/22 Reason for Consult: Severe hyponatremia Requesting Physician: Uzair Vogt Chief Complaint: Hyponatremia History of Present Illness: 77-year-old male patient with medical history significant for hypertension, hyperlipidemia, history of diastolic congestive heart failure was evaluated in the ER for episode of lethargy and found to have severe hyponatremia. He had reported that his primary care doctor doubled his hydrochlorothiazide dose and he also had an episode of diarrhea prior to coming to the ER. In the ED labs done revealed sodium of 118 and he was started on IV fluid for suspected renal wasting of sodium from hydrochlorothiazide and on top of this, volume depletion from poor oral intake and loss from diarrhea. Nephrology was consulted for management recommendation for severe hyponatremia. Since admission, serum sodium had increased from 118 to 120. Allergies No Known Allergies Allergy (Unverified 02/27/22 07:23) Home Medications: Carvedilol [Coreg] 1 tab PO BID 05/13/21 Lisinopril [Zestril] 1 tab PO BID 05/13/21 Albuterol Inhaler [Ventolin Inhaler*] 2 puff IH Q6H PRN #1 hfa.aer.ad 05/14/21 Benzonatate [Tessalon Perle*] 100 mg PO Q8H PRN #30 cap 05/14/21 Mometasone/Formoterol [Dulera 200 Mcg/5 Mcg Inhaler] 2 puff IH BID inhaler 05/14/21 Torsemide 10 mg PO DAILY #30 tablet 05/14/21 predniSONE [Deltasone] 40 mg PO DAILY #3 tab 05/14/21 - Past Medical/Surgical History Diabetic: No -: Hypertension -: Asbestos exposure (suspected COPD) -: Suspected chronic diastolic congestive heart failure -: none Psychosocial/ Personal History: Lives with family - Family History Father Notes: pt adopted - Social History Smoking Status: Never smoker Alcohol use: No CD- Drugs: No Caffeine use: No Place of Residence: Home Review of Systems General: Weakness, Malaise Eyes: Unremarkable ENT: Unremarkable Respiratory: Unremarkable Cardiovascular: Unremarkable Gastrointestinal: Unremarkable Genitourinary: Unremarkable Musculoskeletal: Unremarkable Integumentary: Unremarkable Neurological: Unremarkable Physical Examination Temp Pulse Resp BP Pulse Ox 98.2 F 117 H 20 135/84 96 02/27/22 09:40 02/27/22 09:40 02/27/22 09:40 02/27/22 09:40 02/27/22 09:40 General: Alert, Oriented x3 HEENT: Atraumatic, Normocephalic Neck: Supple Respiratory: Normal air movement Cardiovascular: Regular rate/rhythm, Normal S1 S2 Gastrointestinal: Soft and benign Neurological: Normal speech Laboratory Data (last 24 hrs) 02/26/22 23:59: PT 10.7, INR 0.97 02/26/22 23:59: WBC 14.3 H, Hgb 13.9, Hct 39.4 L, Plt Count 358 02/26/22 23:59: Sodium 118 L*, Potassium 3.9, BUN 15, Creatinine 1.46 H, Glucose 134 H, Magnesium 1.7 L D, Total Bilirubin 0.5, AST 26, ALT 28, Alkaline Phosphatase 72 Conclusions/Impression: Hyponatremiasevere History of hypertension Renal repletion Diastolic congestive heart failure Hyperlipidemia Plan: Episode of hyponatremia is deemed secondary to volume loss from diarrhea related issues and also renal wasting of sodium from hydrochlorothiazide use. He has been started on IV saline infusion for management of hyponatremia. Will monitor sodium level every 6 while admitted. We will aim for increase in serum sodium of 6 to 8 mEq over 24. Will continue to monitor symptomatology. Withhold hydrochlorothiazide doses at this time. Serum osmolality and urine osmolality and urine sodium ordered. Test pending finalization. We will monitor results for adjustment as needed.
[2022-02-27] MEDS: SODIUM CHLORIDE 1 GM TAB PO SCH (17:00)
[2022-02-27] MEDS: ALBUTEROL 2.5 MG/3 ML NEB SOL NEB PRN (19:55)
[2022-02-27] MEDS: IPRATROPIUM BROM 0.5MG/2.5ML NEB PRN (19:55)
[2022-02-27] MEDS: carvediloL 25 MG TAB PO SCH (20:26)
[2022-02-27] MEDS: DULERA 200/5 (MOMETASONE/FORMOTEROL) INHALER IH SCH (20:27)
[2022-02-27] MEDS ORDERED: CYCLOBENZAPRINE 10 MG TAB PO ONE (22:29)
[2022-02-28] MEDS: ALBUTEROL 2.5 MG/3 ML NEB SOL NEB PRN ×3 (01:00→17:32)
[2022-02-28] MEDS: IPRATROPIUM BROM 0.5MG/2.5ML NEB PRN ×3 (01:00→17:32)
[2022-02-28] MEDS ORDERED: MORPHINE 2 MG/ML SYR IV ONE (01:01)
[2022-02-28] MEDS: NA CHLORIDE 0.9% 1,000 ML IV SCH ×2 (01:07→13:19)
[2022-02-28] MEDS ORDERED: IPRATROPIUM BROM 0.5MG/2.5ML NEB ONE (03:44)
[2022-02-28] MEDS ORDERED: ALBUTEROL 2.5 MG/3 ML NEB SOL NEB ONE (03:44)
[2022-02-28] MEDS: HYDROCODONE/APAP 5/325 MG TAB PO PRN ×3 (03:54→20:16)
[2022-02-28 04:39] LABS: Absolute Lymphocytes (CBC) 2.2 K/uL (0.7-4.9); Lymphocytes % 12.1 % (15.3-44.8); MPV 6.9 fL (7.6-11.3); RBC Red Blood Cell Count 4.45 M/uL (4.33-5.43)
[2022-02-28 04:59] LABS: Albumin 3.4 g/dL (3.4-5.0); Bilirubin Total 0.5 mg/dL (0.2-1.0); Magnesium 1.8 mg/dL (1.8-2.4); Potassium 4.1 mmol/L (3.5-5.1); Protein, Total 7.6 g/dL (6.4-8.2)
[2022-02-28] MEDS ORDERED: MAGNESIUM SULFATE 1 gm IVPB 1 GM/100 ML BAG IV ONE (05:47)
--- NOTE | 2022-02-28 07:17 | P.PN ---
Subjective Date of Service: 03/03/22 Chief Complaint: Hyponatremia Subjective: No new changes Physical Examination - Vital Signs Temperature: 97.8 F Blood Pressure: 164/77 Pulse: 65 Respirations: 17 Pulse Ox (%): 96 - Physical Exam General: Alert, Oriented x3 HEENT: Atraumatic, Normocephalic Neck: Supple Respiratory: Normal air movement Cardiovascular: Regular rate/rhythm, Normal S1 S2 Gastrointestinal: Soft and benign Neurological: Normal speech Assessment And Plan - Plan Hyponatremiasevere History of hypertension Renal repletion Diastolic congestive heart failure Hyperlipidemia Plan: Episode of hyponatremia is deemed secondary to volume loss from diarrhea related issues and also renal wasting of sodium from hydrochlorothiazide use. He has been started on IV saline infusion for management of hyponatremia. Sodium lvel is still low at 123. We will monitor results for adjustment as needed.
--- NOTE | 2022-02-28 07:47 | EKG ---
Test Date: 2022-02-26 Test Time: 23:58:18 Beef Splitter: MEASUREMENT RESULTS: Intervals: Rate: 66 NV: 244 QRSD: 106 QT: 402 QTc: 421 [place]: P: 59 NV: 244 QRS: -33 T: 33 INTERPRETIVE STATEMENTS: Sinus rhythm with 1st degree AV block Left axis deviation Abnormal ECG Compared to ECG 05/12/2021 20:05:57 First degree AV block now present Left-axis deviation now present Electronically Signed On 02-28-22 07:42:39 CDT by Markus Sellers
[2022-02-28] MEDS: SODIUM CHLORIDE 1 GM TAB PO SCH ×2 (08:53→15:55)
[2022-02-28] MEDS: ENOXAPARIN 40 MG/0.4 ML SQ SCH (08:53)
[2022-02-28] MEDS: DULERA 200/5 (MOMETASONE/FORMOTEROL) INHALER IH SCH ×2 (08:53→20:17)
[2022-02-28] MEDS: carvediloL 25 MG TAB PO SCH ×2 (09:08→20:17)
[2022-02-28] MEDS: HYDRALAZINE HCL 20 MG/ML VIAL IV PRN (13:19)
--- NOTE | 2022-02-28 14:53 | P.PN ---
Subjective Date of Service: 02/28/22 Chief Complaint: Hyponatremia Subjective: No new changes, No C/O voiced (Very weak today) Physical Examination - Vital Signs Temperature: 96.8 F Blood Pressure: 161/97 Pulse: 59 Respirations: 18 Pulse Ox (%): 98 Assessment And Plan Physician Review: Patient Assessed, Agree with Above Assessment and Plan Physician Review Additional Text: - Physical Exam General: Alert, In no apparent distress, Oriented x3 HEENT: Atraumatic, PERRLA, Mucous membr. Bilateral periorbital ecchymosis Neck: Supple, 2+ carotid pulse no bruit, No LAD, Without JVD or thyroid abnormality Respiratory: Clear to auscultation bilaterally, Normal air movement Cardiovascular: Regular rate/rhythm, Normal S1 S2 Gastrointestinal: Normal bowel sounds, No tenderness Musculoskeletal: No tenderness Integumentary: Trace pedal edema bilaterally, no calf tenderness Neurological: Normal speech, Normal strength at 5/5 x4 extr, Normal tone, Normal affect Lymphatics: No axilla or inguinal lymphadenopathy Impression Acute on chronic hyponatremia History of epistaxis Presumed CHF exacerbationdiastolicprevious normal EF Hypertension Recurrent falls/weakness Leukocytosisunclear etiology Plan Obtain blood culture x2 Start empiric antibiotics with Rocephin since suspected COPD since chest x-ray shows significant interstitial opacities Obtain flu/COVID swab Still persistent low sodium at 120 Continue fluid restriction to less than 1.5 L/day Status post tolvaptan x1 dose today Add Lasix Continue salt tabs Stat BMP every 6 monitor for now Disposition possible hospital stay for 1-2 more days
[2022-02-28] MEDS: CEFTRIAXONE 1,000 MG in NA CHLORIDE 0.9% 50 ML IVPB SCH (15:36)
[2022-02-28] MEDS: FUROSEMIDE 40 MG/4 ML VIAL IV SCH (15:37)
[2022-02-28 16:43] LABS: Potassium 3.8 mmol/L (3.5-5.1)
[2022-02-28] MEDS: ALPRAZOLAM 0.25 MG TABLET PO PRN (22:46)
[2022-03-01 01:22] LABS: Potassium 4.1 mmol/L (3.5-5.1)
[2022-03-01] MEDS: NA CHLORIDE 0.9% 1,000 ML IV SCH ×2 (02:50→08:59)
[2022-03-01] MEDS: HYDRALAZINE HCL 20 MG/ML VIAL IV PRN (05:11)
[2022-03-01 05:39] LABS: Absolute Lymphocytes (CBC) 3.3 K/uL (0.7-4.9); Hematocrit 38.4 % (39.6-49.0); Lymphocytes % 24.9 % (15.3-44.8); MPV 6.2 fL (7.6-11.3); RBC Red Blood Cell Count 4.43 M/uL (4.33-5.43)
[2022-03-01 05:55] LABS: Albumin 3.4 g/dL (3.4-5.0); Bilirubin Total 0.5 mg/dL (0.2-1.0); Magnesium 2.4 mg/dL (1.8-2.4); Potassium 4.1 mmol/L (3.5-5.1); Protein, Total 7.6 g/dL (6.4-8.2)
[2022-03-01] MEDS: HYDROCODONE/APAP 5/325 MG TAB PO PRN ×3 (06:51→21:49)
[2022-03-01] MEDS: carvediloL 25 MG TAB PO SCH ×2 (08:56→21:47)
[2022-03-01] MEDS: CEFTRIAXONE 1,000 MG in NA CHLORIDE 0.9% 50 ML IVPB SCH (08:56)
[2022-03-01] MEDS: SODIUM CHLORIDE 1 GM TAB PO SCH ×3 (08:56→21:47)
[2022-03-01] MEDS: ENOXAPARIN 40 MG/0.4 ML SQ SCH (08:57)
[2022-03-01] MEDS: FUROSEMIDE 40 MG/4 ML VIAL IV SCH ×2 (08:57→13:12)
[2022-03-01] MEDS: DULERA 200/5 (MOMETASONE/FORMOTEROL) INHALER IH SCH ×2 (08:58→21:47)
[2022-03-01] MEDS: AMLODIPINE 10 MG TAB PO SCH (09:09)
[2022-03-01 11:13] LABS: Potassium 3.8 mmol/L (3.5-5.1)
--- NOTE | 2022-03-01 11:57 | P.PN ---
Subjective Date of Service: 03/01/22 Chief Complaint: Hyponatremia Subjective: No new changes, No C/O voiced Physical Examination - Vital Signs Temperature: 98.2 F Blood Pressure: 145/67 Pulse: 68 Respirations: 18 Pulse Ox (%): 95 Assessment And Plan Physician Review: Patient Assessed, Agree with Above Assessment and Plan Physician Review Additional Text: - Physical Exam General: Alert, In no apparent distress, Oriented x3 HEENT: Atraumatic, PERRLA, Mucous membr. Bilateral periorbital ecchymosis Neck: Supple, 2+ carotid pulse no bruit, No LAD, Without JVD or thyroid ab normality Respiratory: Clear to auscultation bilaterally, Normal air movement Cardiovascular: Regular rate/rhythm, Normal S1 S2 Gastrointestinal: Normal bowel sounds, No tenderness Musculoskeletal: No tenderness Integumentary: Trace pedal edema bilaterally, no calf tenderness Neurological: Normal speech, Normal strength at 5/5 x4 extr, Normal tone, Normal affect Lymphatics: No axilla or inguinal lymphadenopathy Impression Acute on chronic hyponatremia History of epistaxis Presumed CHF exacerbationdiastolicprevious normal EF Hypertension Recurrent falls/weakness Leukocytosisunclear etiology Plan WBC trending down Continue empirical Rocephin Continue IV Lasix Serum sodium improving to 127 post tolvaptan x1, repeat dose again today Continue salt tabs and Lasix Continue fluid restriction Patient more oriented and awake today and conversant Add PT and OT Possible discharge in a.m. if serum sodium above 130 03/01/22 11:56
[2022-03-01] MEDS: ALBUTEROL 2.5 MG/3 ML NEB SOL NEB SCH ×2 (13:17→19:05)
[2022-03-01] MEDS: ALBUTEROL 2.5 MG/3 ML NEB SOL NEB PRN (13:17)
[2022-03-01] MEDS: MORPHINE 2 MG/ML SYR IV PRN (17:31)
[2022-03-02 00:09] VITALS: O2SAT 98
[2022-03-02] MEDS: FUROSEMIDE 40 MG/4 ML VIAL IV SCH ×2 (00:29→12:15)
[2022-03-02] MEDS: ALPRAZOLAM 0.25 MG TABLET PO PRN (00:29)
[2022-03-02] MEDS: ALBUTEROL 2.5 MG/3 ML NEB SOL NEB SCH ×4 (01:04→19:35)
[2022-03-02] MEDS: HYDROCODONE/APAP 5/325 MG TAB PO PRN ×2 (04:52→16:48)
[2022-03-02] MEDS: MORPHINE 2 MG/ML SYR IV PRN ×3 (06:15→17:48)
[2022-03-02 06:28] LABS: Albumin 3.2 g/dL (3.4-5.0); Bilirubin Total 0.7 mg/dL (0.2-1.0); Potassium 3.8 mmol/L (3.5-5.1); Protein, Total 7.6 g/dL (6.4-8.2)
[2022-03-02] MEDS ORDERED: POTASSIUM CL SA 10 MEQ TAB PO ONE (09:00)
[2022-03-02] MEDS: ENOXAPARIN 40 MG/0.4 ML SQ SCH (09:00)
[2022-03-02] MEDS: carvediloL 25 MG TAB PO SCH ×2 (09:39→21:07)
[2022-03-02] MEDS: levoFLOXacin 500 MG TAB PO SCH (09:39)
[2022-03-02] MEDS: DULERA 200/5 (MOMETASONE/FORMOTEROL) INHALER IH SCH ×2 (09:40→21:08)
[2022-03-02] MEDS: AMLODIPINE 10 MG TAB PO SCH (09:40)
[2022-03-02] MEDS: SODIUM CHLORIDE 1 GM TAB PO SCH ×3 (09:40→21:07)
--- NOTE | 2022-03-02 13:46 | P.PN ---
Subjective Date of Service: 03/02/22 Chief Complaint: Hyponatremia Subjective: New changes (Complaining of neck, upper back and lower back pain State pain limiting transfer Tolerating p.o. well Denies any headache or dizziness) Physical Examination - Vital Signs Temperature: 97.1 F Blood Pressure: 147/60 Pulse: 63 Respirations: 20 Pulse Ox (%): 100 Assessment And Plan Physician Review: Patient Assessed, Agree with Above Assessment and Plan Physician Review Additional Text: - Physical Exam General: Alert, In no apparent distress, Oriented x3 HEENT: Atraumatic, PERRLA, Mucous membr. Bilateral periorbital ecchymosisfading Neck: Supple, 2+ carotid pulse no bruit, No LAD, Without JVD or thyroid abnormality Respiratory: Clear to auscultation bilaterally, Normal air movement Cardiovascular: Regular rate/rhythm, Normal S1 S2 Gastrointestinal: Normal bowel sounds, No tenderness Musculoskeletal: No tenderness, no calf tenderness Backtenderness extending from cervical to upper thoracic spine Integumentary: Trace pedal edema bilaterally, no calf tenderness Neurological: Normal speech, Normal strength at 5/5 x4 extr, Normal tone, Normal affect Lymphatics: No axilla or inguinal lymphadenopathy Impression Acute on chronic hyponatremia History of epistaxis Presumed CHF exacerbationdiastolicprevious normal EF Hypertension Recurrent falls/weakness Leukocytosisunclear etiology Plan Serum sodium improvingstable at 129 Continue salt tabs and lasix WBC trended down, no clear etiology of infection, continue Rocephin Continue fluid restriction to less than <130 continue PT and OT Possible discharge in a.m. if serum sodium above [address] of the thoracic and lumbar spine 03/02/22 13:46 Time Spent Managing PTS Care (In Minutes): 35
--- NOTE | 2022-03-02 18:58 | RAD REPORT ---
EXAM DESCRIPTION: CT - C Spine Wo Con - 03/02/2022 6:49 pm CLINICAL HISTORY: neck pain and back pain Trauma, neck injury and neck pain/radiculopathy COMPARISON: Head C Spine Mpr Wo Con dated 02/27/2022 FINDINGS: Disc thinning with prominent posterior osteophyte is present lower cervical levels. The od ontoid is normal the lateral masses are symmetric. No evidence of acute cervical spine fracture or subluxation. Prevertebral soft tissues are normal in thickness. IMPRESSION: Negative for acute cervical spine abnormality. Moderate lower cervical degenerative smart ges. All CT scans are performed using dose optimization technique as appropriate and may include automated exposure control or mA/KV adjustment according to patient size.
--- NOTE | 2022-03-02 19:00 | RAD REPORT ---
EXAM DESCRIPTION: CT - Thoracic Spine Wo Cont - 03/02/2022 6:50 pm CLINICAL HISTORY: Radiculopathy. neck pain and back pain COMPARISON: No comparisons TECHNIQUE: Axial CT imaging through the thoracic spine was performed with coronal and sagittal re-fo rmatted images. All CT scans are performed using dose optimization technique as appropriate and may include automated exposure control or mA/KV adjustment according to patient size. FINDINGS: A compression fracture is not present. Diffuse spondylosis in the form of mild disc thinni ng and anterior osteophytosis is present throughout the thoracic spine. No traumatic subluxation or malalignment of the thoracic spine seen. No paraspinal masses or hematoma . IMPRESSION: [id number] diffuse thoracic spondylosis. No acute finding evident.
--- NOTE | 2022-03-02 19:01 | RAD REPORT ---
EXAM DESCRIPTION: CT - Spine Lumbar Wo Con - 03/02/2022 6:50 pm CLINICAL HISTORY: Radiculopathy. neck pain and back pain COMPARISON: C Spine Wo Con dated 03/02/2022 TECHNIQUE: Axial noncontrast CT imaging of the lumbar spine was performed with coronal and sagittal re-formatted images. All CT scans are performed using dose optimization technique as appropriate and may include automated exposure control or mA/KV adjustment according to patient size. FINDINGS: No acute lumbar spine fracture seen. No aggressive marrow pattern or malalignment. Paraspinal tissues are normal in thickness. No paraspinal abscess or hematoma seen. Moderate lower lumbar spondylosis. IMPRESSION: No acute lumbar spine abnormality seen. Moderate lower lumbar spondylosis.
[2022-03-03] MEDS: FUROSEMIDE 40 MG/4 ML VIAL IV SCH ×2 (00:17→14:26)
[2022-03-03] MEDS: MORPHINE 2 MG/ML SYR IV PRN ×2 (00:21→09:56)
[2022-03-03] MEDS: ALBUTEROL 2.5 MG/3 ML NEB SOL NEB SCH ×4 (01:05→20:20)
[2022-03-03] MEDS: IPRATROPIUM BROM 0.5MG/2.5ML NEB PRN (04:20)
[2022-03-03 06:04] LABS: Albumin 3.1 g/dL (3.4-5.0); Bilirubin Total 0.7 mg/dL (0.2-1.0); Potassium 3.8 mmol/L (3.5-5.1); Protein, Total 7.6 g/dL (6.4-8.2)
[2022-03-03] MEDS: ENOXAPARIN 40 MG/0.4 ML SQ SCH (09:00)
[2022-03-03] MEDS ORDERED: POTASSIUM CL SA 10 MEQ TAB PO ONE (09:00)
[2022-03-03] MEDS: AMLODIPINE 10 MG TAB PO SCH (09:54)
[2022-03-03] MEDS: SODIUM CHLORIDE 1 GM TAB PO SCH ×3 (09:55→20:44)
[2022-03-03] MEDS: DULERA 200/5 (MOMETASONE/FORMOTEROL) INHALER IH SCH ×2 (09:56→20:45)
[2022-03-03] MEDS: levoFLOXacin 500 MG TAB PO SCH (09:56)
[2022-03-03] MEDS: carvediloL 25 MG TAB PO SCH ×2 (09:56→20:43)
[2022-03-03] MEDS ORDERED: dexAMETHasone 4 MG/ML VIAL IV ONE (11:12)
--- NOTE | 2022-03-03 14:47 | P.PN ---
Date of Service: 03/03/22 Subjective Subjective: New changes (Complaining of neck, upper back and lower back pain State pain limiting transfer Tolerating p.o. well Denies any headache or dizziness) Physical Examination - Vital Signs reviewed - Physical Exam General: Alert, In no apparent distress, Oriented x3 HEENT: Bilateral periorbital ecchymosisfading Respiratory: Clear to auscultation bilaterally, Normal air movement Cardiovascular: Regular rate/rhythm, Normal S1 S2 Gastrointestinal: Normal bowel sounds, No tenderness Musculoskeletal: No tenderness, no calf tenderness Backtenderness extending from cervical to upper thoracic spine Integumentary: Trace pedal edema bilaterally, no calf tenderness Neurological: Normal speech, Normal strength at 5/5 x4 extr, Normal tone, Normal affect Assessment And Plan Physician Review: Patient Assessed, Agree with Above Assessment and Plan Physician Review Additional Text: Impression Acute on chronic hyponatremia History of epistaxis Presumed CHF exacerbationdiastolicprevious normal EF Hypertension Recurrent falls/weakness Leukocytosisunclear etiology Plan Serum sodium improvingstable at 129 Continue salt tabs and lasix WBC trended down, no clear etiology of infection, continue Rocephin Continue fluid restriction to less than <130 continue PT and OT Possible discharge in a.m. if serum sodium above [address] of the thoracic and lumbar spine
[2022-03-03] MEDS ORDERED: dexAMETHasone 4 MG/ML VIAL IV SCH (17:00)
--- NOTE | 2022-03-03 18:39 | P.PN ---
Subjective Date of Service: 03/03/22 Chief Complaint: Hyponatremia Physical Examination - Vital Signs Temperature: 97.8 F Blood Pressure: 164/77 Pulse: 65 Respirations: 17 Pulse Ox (%): 96 - Physical Exam General: Alert HEENT: Atraumatic, Normocephalic Neck: Supple Respiratory: Normal air movement Cardiovascular: Regular rate/rhythm, Normal S1 S2 Gastrointestinal: Soft and benign Assessment And Plan - Plan Hyponatremiaimproved. History of hypertension Renal repletion Diastolic congestive heart failure Hyperlipidemia Plan: Serum sodium is better at 130. we will continue salt tablets and follow sodium level on daily basis. Physician Review: Patient Assessed, Agree with Above Assessment and Plan
[2022-03-03] MEDS: HYDROCODONE/APAP 5/325 MG TAB PO PRN (20:44)
[2022-03-03] MEDS: dexAMETHasone 4 MG/ML VIAL IV SCH (22:00)
[2022-03-04] MEDS: FUROSEMIDE 40 MG/4 ML VIAL IV SCH ×2 (01:23→13:53)
[2022-03-04] MEDS: ALBUTEROL 2.5 MG/3 ML NEB SOL NEB SCH ×4 (01:58→20:20)
[2022-03-04] MEDS: dexAMETHasone 4 MG/ML VIAL IV SCH ×3 (06:15→21:18)
[2022-03-04] MEDS: ENOXAPARIN 40 MG/0.4 ML SQ SCH (09:00)
[2022-03-04] MEDS ORDERED: levoFLOXacin 750 MG TAB PO SCH (09:00)
[2022-03-04] MEDS: carvediloL 25 MG TAB PO SCH ×2 (09:16→21:17)
[2022-03-04] MEDS: DULERA 200/5 (MOMETASONE/FORMOTEROL) INHALER IH SCH ×2 (09:17→21:00)
[2022-03-04] MEDS: SODIUM CHLORIDE 1 GM TAB PO SCH ×3 (09:18→21:20)
[2022-03-04] MEDS: AMLODIPINE 10 MG TAB PO SCH (09:18)
[2022-03-04] MEDS: HYDROCODONE/APAP 5/325 MG TAB PO PRN (09:23)
[2022-03-04] MEDS: ALPRAZOLAM 0.25 MG TABLET PO PRN (21:31)
[2022-03-05] MEDS: ALBUTEROL 2.5 MG/3 ML NEB SOL NEB SCH ×2 (01:25→07:44)
[2022-03-05] MEDS: FUROSEMIDE 40 MG/4 ML VIAL IV SCH ×2 (02:43→12:19)
[2022-03-05] MEDS: dexAMETHasone 4 MG/ML VIAL IV SCH (05:52)
[2022-03-05 06:04] LABS: Absolute Lymphocytes (CBC) 1.6 K/uL (0.7-4.9); Hematocrit 38.2 % (39.6-49.0); Lymphocytes % 13.3 % (15.3-44.8); MPV 6.3 fL (7.6-11.3); RBC Red Blood Cell Count 4.38 M/uL (4.33-5.43)
[2022-03-05 06:12] LABS: Potassium 4.1 mmol/L (3.5-5.1)
[2022-03-05 07:57] LABS: Blood Morphology Comment NOT SEEN (NOT SEEN); Platelet Estimate ADEQ; Platelets, Giant FEW; White Blood Cell Scan OK (OK)
[2022-03-05] MEDS: DULERA 200/5 (MOMETASONE/FORMOTEROL) INHALER IH SCH (09:00)
[2022-03-05] MEDS: ENOXAPARIN 40 MG/0.4 ML SQ SCH ×2 (09:00→09:56)
[2022-03-05] MEDS: AMLODIPINE 10 MG TAB PO SCH (09:55)
[2022-03-05] MEDS: carvediloL 25 MG TAB PO SCH (09:55)
[2022-03-05] MEDS: SODIUM CHLORIDE 1 GM TAB PO SCH (09:56)
[2022-03-05 12:08] VITALS: BP 153/70; TEMP 97.4
--- NOTE | 2022-03-10 13:12 | EKG ---
Test Date: 2022-03-05 Test Time: 02:08:08 Bead Wire Insulator: RT MEASUREMENT RESULTS: Intervals: Rate: 63 KS: 168 QRSD: 88 QT: 432 QTc: 442 [place]: P: -14 KS: 168 QRS: -26 T: 1 INTERPRETIVE STATEMENTS: Normal sinus rhythm Inferior infarct, age undetermined Abnormal ECG Compared to ECG 02/26/2022 23:58:18 Myocardial infarct finding now present First degree AV block no longer present Left-axis deviation no longer present Electronically Signed On 03-10-22 13:12:02 CDT by Gabino Piper
== END 2022-03-05 13:05 | disposition home or self-care (01) | DRG 640 ==
LOC: ER 22:52 → ERHOLD 02-27 01:56 → 4TH 02-27 17:08 → 2ND 02-28 17:45
PROVIDERS: ADMIT Internal Medicine; ATTEND Internal Medicine
DX: E87.1 Hypo-osmolality and hyponatremia (principal); I50.33 Acute on chronic diastolic (congestive) heart failure; J44.9 Chronic obstructive pulmonary disease, unspecified; J61 Pneumoconiosis due to asbestos and other mineral fibers; I11.0 Hypertensive heart disease with heart failure; E86.1 Hypovolemia; S09.90XA Unspecified injury of head, initial encounter; W18.30XA Fall on same level, unspecified, initial encounter; Y93.01 Activity, walking, marching and hiking; Y92.009 Unspecified place in unspecified non-institutional (private) residence as the place of occurrence of the external cause; E78.5 Hyperlipidemia, unspecified; R19.7 Diarrhea, unspecified; D72.829 Elevated white blood cell count, unspecified; Z20.822 Contact with and (suspected) exposure to COVID-19
CPT/HCPCS: 36415; 70450; 71045; 72125; 72128; 72131; 80048; 80053; 80076; 81003; 81015; 82533; 83735; 83880; 83930; 83935; 84300; 84443; 84484; 85025; 85610; 86140; 87040; 93005; 94640; 95851; 96361; 96365; 96366; 96375; 97110; 97116; 97161; 97530; 99285; J0360; J1100; J1650; J1940; J2270; J2405; J2930; J3475; J3535; J7030; J7040; U0003

== ENCOUNTER 2022-11-08 20:20 | Emergency (ER) | payer OTHER ==
--- OUTSIDE RECORDS SUMMARY | 2022-11-08 20:24 | XMS REPORT | Continuity of Care Document ---
:1945 Author Organization [facility] t Address [address] [place] [address] Care Team Providers Name Role Phone TANYA BE Primary Care Physician Unavailable ABUNDIO HARPER Attending Clinician Unavailable RADIOLOGY Attending Clinician Unavailable Radiology Attending Clinician Unavailable Pob, Adc Lab Main Attending Clinician Unavailable Abundio Brown MD Attending Clinician Doctor Unassigned, [place] Attending Clinician Unavailable ABUNDIO HARPER Admitting Clinician Unavailable Payers Payer Name Policy Type Policy Number Effective Date Expiration Date S miranda MEDICARE PART A [id number] 2004 \T\ B 00:00:00 Problems Condition Condition Condition Status Onset Resolution Last Treating Co mments Source Name Details Category Date Date Treatment Clinician Date No known No known Disease Unive rs active active ity of problems problems [facility] Allergies, Adverse Reactions, Alerts Allergy Allergy Status Severity Reaction(s) Onset Inactive Treating Comm ents Source Name Type Date Date Clinician NO KNOWN Drug Active Univers ALLERGIE Class ity of S [facility] Social History Social Habit Start Date Stop Date Quantity Comments Source Alcohol intake 2016-12-12 2016-12-12 0 /d [facility] 00:00:00 00:00:00 [facility] Tobacco use and 2016-04-18 2016-04-18 Never used [facility] exposure 00:00:00 00:00:00 [facility] Sex Ass[birth year] [facility] 00:00:00 00:00:00 [facility] Smoking Status Start Date Stop Date Source Never smoker [facility] Medications Ordered Filled Start Stop Current Ordering Indication Dosage Frequency Signature Comments Components Source Medication Medication Date Date Medication? Clinician (SIG) Name Name ASCORBATE Yes Take by Unive rs CALCIUM 6-17 mouth. ity of (VITAMIN C 13:44: [place] ORAL) 36 [facility] Branch DIPHENHYDRA Yes Take by Uni vers MINE HCL 6-17 mouth. ity of (ALLERGY 13:44: [place] [id number] Medical ORAL) Branch ASCORBATE Yes Take by Unive rs CALCIUM 6-17 mouth. ity of (VITAMIN C 13:44: [place] ORAL) 36 Medical Branch DIPHENHYDRA Yes Take by Uni vers MINE HCL 6-17 mouth. ity of (ALLERGY 13:44: [place] [id number] Medical ORAL) Branch ASCORBATE Yes Take by Unive rs CALCIUM 6-17 mouth. ity of (VITAMIN C 13:44: [place] ORAL) Medical Branch DIPHENHYDRA Yes Take by Uni vers MINE HCL 6-17 mouth. ity of (ALLERGY 13:44: [place] [id number] Medical ORAL) Branch maalox/diph Yes 5mL Take [...] Procedure Date / Time Performed Performing Clinician [facility] e ASSIGNMENT OF BENEFITS 2021-10-17 17:01:45 Doctor Unassigned, No [facility] Name Medical Branch Encounters Start End Encounter Admission Attending Care Care Encounter Source Date/Time Date/Time Type Type Clinicians Facility Department ID 2021-09-05 Outpatient Jeanna HARPER [facility] OPH [id number] Univers 17:21:48 ABUNDIO itderek of [facility] 2021-10-17 2021-10-17 Outpatient R RADIOLOGY [facility] [id number] Univers 11:06:02 23:59:00 ity of [facility] 2021-10-17 2021-10-17 Hospital Radiology [facility] [id number] Univers 11:06:02 23:59:00 Encounter CON[place] [id number] it[id number] [id number] [facility] [address] 2021-10-17 2021-10-17 Faculty Physician Adamaris, Adc Lab Main [facility] [id number] Univers 11:00:00 11:15:00 Visit Abundio Brown [id number] [id number] [phone] Ms dical NAL [address] [facility] 2021-10-17 2021-10-17 Orders Doctor PATRICK [id number] Univers 00:00:00 00:00:00 Only Unassigned, ANABELLE [id number] ity of [place] [facility] [id number] [place] as [id number] [facility] [address] Branch 2021-09-10 2021-09-10 Outpatient R LEROY, [facility] [id number] Univers 15:00:00 15:00:00 ABUNDIO aldrich [facility] Results This patient has no known results.
[2022-11-08 21:17] LABS: Urine Blood 2+ (Negative); Urine Glucose Negative (Negative); Urine Protein Negative (Negative); Urine pH 5.5 (5.0-7.0)
[2022-11-08 21:25] LABS: SARS-COV-2 RT PCR POSITIVE (NEGATIVE)
--- NOTE | 2022-11-08 22:34 | EDPHYS ---
Physician Documentation [facility] Name: Kalen Pinedo Age: 77 yrs Sex: Male : 1945 Arrival Date: 11/08/2022 Time: 20:23 Bed 12 Private MD: ED Physician Kristyn Gupta HPI: 11/09 00:45 This 77 yrs old Male presents to ER via Wheelchair with complaints of Fever, kb Shortness Of Breath, Decreased Appetite. 00:45 Patient reports fever, fatigue, sore throat, congestion and nausea for 5 days.. kb 00:46 The patient or guardian reports flu symptoms, myalgias. Onset: The symptoms/episode kb began/occurred 5 day(s) ago. Severity of symptoms: At their worst the symptoms were moderate, in the emergency department the symptoms are unchanged. Modifying factors: The symptoms are alleviated by nothing, the symptoms are aggravated by nothing. Associated signs and symptoms: Pertinent positives: fever, nausea, sore throat. The patient has not experienced similar symptoms in the past. The patient has not recently seen a physician. Historical: - Allergies: 11/08 20:29 No Known Allergies; aa9 - Home Meds: 20:29 lisinopril 40 mg Oral tab 1 tab once daily [Active]; amlodipine oral [Active]; aspirin aa9 81 mg Oral cap [Active]; carvedilol 25 mg Oral tab 1 tab 2 times per day [Active]; - PMHx: 20:29 Hypertensive disorder; aa9 - PSHx: 20:29 None; aa9 - Immunization history:: Client reports having NOT received the Covid vaccine. - Social history:: Smoking status: Patient denies any tobacco usage or history of. ROS: 11/09 00:45 Constitutional: Positive for fatigue, fever, malaise. kb ENT: Positive for sinus congestion, sore throat. Abdomen/GI: Positive for nausea. Neuro: Positive for headache. All other systems are negative. 00:47 Cardiovascular: Negative for chest pain, palpitations, and edema, Respiratory: Negative kb for shortness of breath, cough, wheezing, and pleuritic chest pain. Exam: 00:45 Constitutional: This is a well developed, well nourished patient who is awake, alert, kb and in no acute distress. Head/Face: Normocephalic, atraumatic. ENT: Moist Mucous membranes Cardiovascular: Regular rate and rhythm with a normal S1 and S2. No gallops, murmurs, or rubs. No pulse deficits. Respiratory: Respirations even and unlabored. No increased work of breathing. Talking in full sentences Skin: Warm, dry with normal turgor. Normal color. MS/ Extremity: Pulses equal, no cyanosis. Neurovascular intact. Full, normal range of motion. Neuro: Awake and alert, GCS 15, oriented to person, place, time, and situation. Moves all extremities. Normal gait. Psych: Awake, alert, with orientation to person, place and time. Behavior, mood, and affect are within normal limits. Vital Signs: 11/08 20:26 BP 144 / 70; Pulse 69; Resp 22 S; Temp 97.3(O); Pulse Ox 98% on R/A; Weight 99.79 kg aa9 (R); Height 5 ft. 11 in. (180.34 cm) (R); 22:45 BP 170 / 75; Pulse 72; Resp 20; Temp 97.7; Pulse Ox 97% ; kb3 20:26 Body Mass Index 30.68 (99.79 kg, 180.34 cm) aa9 MDM: 20:34 Patient medically screened. kb 11/09 00:44 Differential diagnosis: viral Infection, bacterial infection, URI, bronchitis, kb pneumonia COVID. Data reviewed: vital signs, nurses notes. Data interpreted: Pulse oximetry: on room air is 97 %. Interpretation: normal. Counseling: I had a detailed discussion with the patient and/or guardian regarding: the historical points, exam findings, and any diagnostic results supporting the discharge/admit diagnosis, lab results, the need for outpatient follow up, a family practitioner, to return to the emergency department if symptoms worsen or persist or if there are any questions or concerns that arise at home. ED course: Diagnostic test considered but not performed: Chest x-ray considered but patient's lungs are clear. History obtained from: Patient and daughter. 11/08 20:34 Order name: Strep; Complete Time: 21:27 kb 11/08 20:34 Order name: COVID-19/FLU A+B; Complete Time: 21:27 kb 11/08 21:01 Order name: Throat Culture EDCA 11/08 21:17 Order name: Urine Dipstick-Ancillary; Complete Time: 21:27 EDMS 11/08 21:19 Order name: Urine Dipstick-Ancillary EDMS Administered Medications: No medications were administered Disposition Summary: 11/08/22 22:34 Discharge Ordered Location: Home kb Condition: Stable kb Diagnosis - SARS-associated coronavirus as the cause of diseases classified elsewhere kb Followup: kb - With: Emergency Department - When: As needed - Reason: Worsening of condition Followup: kb - With: Private Physician - When: 2 - 3 days - Reason: Recheck today's complaints, Continuance of care, Re-evaluation by your physician Discharge Instructions: - Discharge Summary Sheet kb - COVID-19 kb - Viral Illness, Adult kb Forms: - Medication Reconciliation Form kb - Thank You Letter kb - Antibiotic Education kb - Prescription Opioid Use kb Signatures: Dispatcher [employer] EDMS Erlinda Lantigua, DIANA-C DIANA-Keila Bagley, RN RN aa9
--- NOTE | 2022-11-08 22:34 | ER ---
Nurse's Notes [facility] Name: Kalen Pinedo Age: 77 yrs Sex: Male : 1945 Arrival Date: 11/08/2022 Time: 20:23 Bed 12 Private MD: Diagnosis: SARS-associated coronavirus as the cause of diseases classified elsewhere Presentation: 11/08 20:26 Chief complaint: Patient states: I am sleepy, I have a sore throat, I can't eat because aa9 I can't taste anything. Coronavirus screen: Vaccine status: Patient reports being unvaccinated. Ebola Screen: No symptoms or risks identified at this time. Initial Sepsis Screen: Does the patient meet any 2 criteria? No. Patient's initial sepsis screen is negative. Does the patient have a suspected source of infection? No. Patient's initial sepsis screen is negative. Risk Assessment: Do you want to hurt yourself or someone else? Patient reports no desire to harm self or others. Onset of symptoms was November 08, 2022. 20:26 Method Of Arrival: Wheelchair aa9 20:26 Acuity: ARELY 4 aa9 Triage Assessment: 20:30 General: Appears in no apparent distress. Behavior is calm, cooperative, appropriate aa9 for age. General: reports fatigue for 4-5 days now. Pain: Complains of pain in throat. Neuro: Level of Consciousness is awake, alert, obeys commands, Oriented to person, place, time, situation. Respiratory: Airway is patent Respiratory effort is even, unlabored, Onset: The symptoms/episode began/occurred 2-3 day ago, the patient has mild shortness of breath Denies cough. GI: Reports nausea. : No signs and/or symptoms were reported regarding the genitourinary system. Derm: Skin is intact, with poor turgor. Musculoskeletal: No signs and/or symptoms reported regarding the musculoskeletal system. Historical: - Allergies: 20:29 No Known Allergies; aa9 - Home Meds: 20:29 lisinopril 40 mg Oral tab 1 tab once daily [Active]; amlodipine oral [Active]; aspirin aa9 81 mg Oral cap [Active]; carvedilol 25 mg Oral tab 1 tab 2 times per day [Active]; - PMHx: 20:29 Hypertensive disorder; aa9 - PSHx: 20:29 None; aa9 - Immunization history:: Client reports having NOT received the Covid vaccine. - Social history:: Smoking status: Patient denies any tobacco usage or history of. Screenin:34 Abuse screen: Denies threats or abuse. Denies injuries from another. Nutritional aa9 screening: Difficulty chewing/swallowing? Yes. Tuberculosis screening: No symptoms or risk factors identified. 21:30 [facility] ED Fall Risk Assessment (Adult) History of falling in the last 3 months, kb3 including since admission No falls in past 3 months (0 pts) Confusion or Disorientation No (0 pts) Intoxicated or Sedated No (0 pts) Impaired Gait Yes (1 pt) Mobility Assist Device Used Yes (1 pt) Altered Elimination No (0 pt) Score/Fall Risk Level 0 - 2 = Low Risk Oriented to surroundings, Maintained a safe environment, Educated pt \T\ family on fall prevention, incl call for assistance when getting out of bed, Assessed \T\ reinforced patient's understanding of fall precautions, Provided non-skid footwear, Hourly rounding (assess needs \T\ fall precautionary measures) done, Used ambulatory aids as needed (educated on \T\ assisted with), Used gait belt as appropriate. Assessment: 21:30 General: Received care of pt from MINDI segovia. Pt reports sore throat x1 week with kb3 loss of taste, intermittent fever and excessive fatigue. 21:30 Respiratory: Airway is patent Respiratory effort is even, unlabored, Breath sounds are kb3 clear bilaterally. EENT: Throat is clear. 22:00 General: Pt resting comfortably. Warm blanket provided. kb3 Vital Signs: 20:26 BP 144 / 70; Pulse 69; Resp 22 S; Temp 97.3(O); Pulse Ox 98% on R/A; Weight 99.79 kg aa9 (R); Height 5 ft. 11 in. (180.34 cm) (R); 22:45 BP 170 / 75; Pulse 72; Resp 20; Temp 97.7; Pulse Ox 97% ; kb3 20:26 Body Mass Index 30.68 (99.79 kg, 180.34 cm) aa9 ED Course: 20:23 Patient arrived in ED. as 20:29 Triage completed. aa9 20:34 Erlinda Lantigua FNP-C is PHCP. kb 20:34 Kristyn Gupta MD is Attending Physician. kb 20:34 Arm band placed on. aa9 20:34 Patient has correct armband on for positive identification. Adult w/ patient. aa9 21:30 No provider procedures requiring assistance completed. Patient did not have IV access kb3 during this emergency room visit. 21:31 Yulissa Fernández, RN is Primary Nurse. kb3 21:31 Urine Dipstick-Ancillary Sent. kb3 Administered Medications: No medications were administered Medication: 20:34 VIS not applicable for this client. aa9 Outcome: 22:34 Discharge ordered by . kb 22:54 Discharged to home via wheelchair. kb3 22:54 Condition: stable 22:54 Discharge instructions given to patient, family, Instructed on discharge instructions, follow up and referral plans. medication usage, Demonstrated understanding of instructions, follow-up care, medications. 22:55 Patient left the ED. kb3 Signatures: Erlinda Lantigua, CHIP BIN CONVEYOR TENDER-C CHIP BIN CONVEYOR TENDER-Brendenb Michelle Guerra Aylin, RN RN aa9 Yulissa Fernández, RN RN kb3
[2022-11-08 23:54] VITALS: BP 170/75; TEMP 97.7; O2SAT 97
== END 2022-11-08 22:55 | disposition home or self-care (01) ==
LOC: ER 20:20
DX: U07.1 COVID-19 (principal); I10 Essential (primary) hypertension; Z79.82 Long term (current) use of aspirin
CPT/HCPCS: 87070; 87081; 81003; 0240U; 99283

== ENCOUNTER 2024-12-09 18:05 | Inpatient (IN) | payer OTHER ==
--- OUTSIDE RECORDS SUMMARY | 2024-12-09 18:07 | XMS REPORT | Continuity of Care Document ---
Author Name Unknown Address [address] [place] [id number] [facility] thconnect Address [address] [place] [address] Care Team Providers Care Rock Room Worker Name Role Phone Reji Hope Primary Care Physician ABUNDIO HARPER Attending Clinician Naty davis RADIOLOGY Attending Clinician Unavailable Radiology Attending Clinician Unavailable Radiology Attending Clinician Unavailable Pob, Adc Lab Main Attending Clinician Abundio Tapia MD Attending Clinician Doctor Unassigned, [place] Attending Clinician U ABUNDIO Hidalgo Admitting Clinician Naty davis Payers Payer Name Policy Type Policy Number Effective Date Expirati on Date Source MEDICARE PART A \T\ B [id number] 2004 00:00:00 Problems Condition Name Condition Details Condition Category Status Onset Date Resolution Date Last Treatment Date Treating Clinician Comments Source No known active problems No known active problems Disease [facility] Allergies, Adverse Reactions, Alerts Allergy Name Allergy Type Status Severity Reaction(s) Onset Date Inactive Date Treating Clinician Comments Source NO KNOWN ALLERGIE S Drug Class Active [facility] Social History Social Habit Start Date Stop Date Quantity Comments Source [facility] Alcohol intake 2016-12-12 00:00:00 2016-12-12 00:00:00 0 /d [facility] Alcoholic beverage intake 2016-12-12 00:00:00 2016-12-12 00:00:00 0 /d [facility] Tobacco use and exposure 2016-04-18 00:00:00 2016-04-18 00:00:00 Smokeless tobacco non-user [facility] History of Social function 2016-04-18 00:00:00 2016-04-18 00:00:00 [facility] Sex assigned at 1945 00:00:00 1945 00:00:00 [facility] Smoking Status Start Date Stop Date Source Never smoked tobacco [facility] Medications Ordered Medication Name Filled Medication Name Start Date Stop Date Current Medication? Ordering Clinician Indication Dosage Frequency Signature (SIG) Comments Components Source ASCORBATE CALCIUM (VITAMIN C ORAL) 04-18 13:44: 36 Yes Take by mouth. [facility] maalox/diph enhydrAMINE :lidocaine2 % viscous 1:1:1 (COMPOUNDED ) Susp suspension 04-18 00:00: 00 Yes 5mL Take 5 mL by mouth as needed for Oral mucositis (swish and spit). [facility] Procedures Procedure Date / Time Performed Performing Clinicia n Source MR LUMBAR SPINE WO CONTRAST 2024-12-06 17:53:00 Requisition, Paper [facility] ASSIGNMENT OF BENEFITS 2021-10-17 17:01:45 Docto r Unassigned, [place] [facility] Encounters Start Date/Time End Date/Time Encounter Type Admission Type Attending Clinicians Care Facility Care Department Encounter ID Source 2021-09-05 17:21:48 Outpatient R ABUNDIO HARPER [facility] OPH [id number] [facility] 2024-12-06 10:41:19 2024-12-06 23:59:00 Outpatient R RADIOLOGY [facility] [id number] [facility] 2024-12-06 10:41:19 2024-12-06 23:59:00 Hospital Encounter Radiology Radiology [facility] AT COUNTS INCLUDE [address] BEDS AT THE [facility] [id number] [facility] 2021-10-17 11:06:02 2021-10-17 23:59:00 Outpatient R RADIOLOGY [facility] [id number] [facility] 2021-10-17 11:06:02 2021-10-17 23:59:00 Hospital Encounter Radiology [facility] [id number] [facility] 2021-10-17 11:00:00 2021-10-17 11:15:00 Hr Director Visit Pob, Adc Lab Main Abundio Brown [facility] PROFESS[facility] [id number] [facility] 2021-10-17 00:00:00 2021-10-17 00:00:00 Orders Only Doctor Unassigned, [place] [facility] [id number] [facility] 2021-09-10 15:00:00 2021-09-10 15:00:00 Outpatient Jeanna HARPER ABUNDIO [facility] [id number] [facility] Results Test Description Test Time Test Comments Results Result Comments Source MR Lumbar spine wo contrast 19:50:48 MR LUMBAR SPINE WO CONTRAST HISTORY: 79 years old Male with Faxed order COMPARISON: None TECHNIQUE: MRI of the lumbar spine without contrast performed on 1.5 Zoila. FINDINGS: The lumbar curvature is normal. There is a mild to moderate L4 vertebralbody compression fracture without posterior cortical retropulsion. There ismarrow edema in keeping with acute to subacute etiology. The vertebral bodies are otherwise normal in height and alignment. Theconus medullaris terminates at the level of T12-L1. Diffuse epidurallipomatosis is noted in the cauda equina nerve roots are clumped at L2-L4due to canal/thecal sac stenosis. There is multilevel disc desiccation with up to moderate height loss atL5-S1. L5-S1 mild type II Modic changes. A there is mild marrow edema atthe anterior superior aspect of T12 likely related to degenerative endplatechanges. The background marrow signal is otherwise unremarkable. L1-L2: Mild facet joint arthrosis and ligamentum flavum thickening. Nosignificant spinal canal stenosis or neural foraminal narrowing. L2-L3: Shallow disc bulge, bilateral facet joint arthrosis and ligamentumflavum thickening. No significant spinal canal stenosis. Mild bilateralneuroforaminal narrowing. L3-L4: Diffuse disc bulge bilateral facet jointarthrosis and ligamentum flavum thickening resulting in mild spinal canalstenosis and bilateral mild neural foramina narrowing . L3-L4: Shallow disc bulge bilateral facet joint arthrosis and ligamentumflavum thickening resulting in moderate spinal canal stenosis. Mild tomoderate bilateral neuroforaminal narrowing. L4-L5: Disc bulge with facet arthrosis and ligamentum flavum thickening. Atiny right anterior facet synovial cyst. Mild bilateral neuroforaminalnarrowing. Moderate canal/thecal sac stenosis. L5-S1: Disc bulge with annular fissure and mild facet arthrosis. Nosignificant neuroforaminal narrowing. There is mild left [id number] right neuroforaminal narrowing. [facility]
--- NOTE | 2024-12-09 21:46 | RAD REPORT ---
Procedure: Chest Single View HISTORY: Shortness of breath COMPARISON: 2022 FINDINGS: Mild bilateral pulmonary opacities. Her graph. No significant pleural effusion noted. The heart is mildly enlarged.. Patient in a poor degree of inspiration IMPRESSION: These findings may indicate mild CHF
[2024-12-09 21:51] LABS: Absolute Basophils 0.1 K/uL (0-0.5); Absolute Eosinophils 0.2 K/uL (0-0.5); Absolute Lymphocytes (CBC) 2.1 K/uL (0.7-4.9); Absolute Monocytes 1.2 K/uL (0.1-1.3); Absolute Neutrophil 13.3 K/uL (1.8-8.0); Basophils % 0.5 % (0-1.3); Eosinophils % 1.4 % (0-4.4); Hematocrit 36.8 % (39.6-49.0); Hemoglobin 12.4 g/dL (13.6-17.9); Lymphocytes % 12.2 % (15.3-44.8); MCH 30.1 pg (27.0-35.0); MCHC 33.7 g/dL (32.0-36.0); MCV 89.4 fL (80-100); MPV 6.7 fL (7.6-11.3); Monocytes % 7.1 % (3.3-12.3); Neutrophils % 78.8 % (41.7-73.7); Nucleated Red Blood Cells % 0.1 % (0-0); Platelets 416 thou/uL (152-406); RBC Red Blood Cell Count 4.11 M/uL (4.33-5.43); Red Cell Distribution Width 13.9 % (12.1-15.2)
[2024-12-09 21:58] LABS: PT Prothrombin Time 12.4 SECONDS (9.4-12.5); Protime INR 1.18
[2024-12-09 22:18] LABS: Albumin 3.4 g/dL (3.4-5.0); Albumin/Globulin Ratio 0.7 (1.1-1.8); Anion Gap 13.3 mEq/L (5.0-15.0); Bilirubin Direct 0.2 mg/dL (0-0.2); Bilirubin Indirect, Calculated 0.7 mg/dL (0.2-0.8); Bilirubin Total 0.9 mg/dL (0.2-1.0); Globulin 4.8 g/dL (2.3-3.5); Magnesium 2.3 mg/dL (1.6-2.4); Potassium 6.3 mEq/L (3.5-5.1); Protein, Total 8.2 g/dL (6.4-8.2); Troponin High Sensitivity 7.9 pg/mL (<58.9)
[2024-12-09] MEDS ORDERED: ALBUTEROL 2.5 MG/3 ML NEB SOL ONE (23:08)
[2024-12-09] MEDS ORDERED: INSULIN REGULAR (HUMAN) 100 UNIT/ML ONE (23:08)
[2024-12-09] MEDS ORDERED: CALCIUM GLUCONATE 1 GM IVPB 1 GM/50 ML BAG IV ONE (23:09)
[2024-12-09] MEDS ORDERED: NA CHLORIDE 0.9% 500 ML ONE (23:09)
[2024-12-09] MEDS ORDERED: SODIUM BICARB 50 MEQ/50ML VIAL ONE (23:09)
[2024-12-09] MEDS ORDERED: D50W 25 GM/50 ML SYRINGE IV ONE (23:10)
[2024-12-09] MEDS ORDERED: SOD POLYSTYREN SUL 15 GM/60 ML UCUP ONE (23:10)
--- NOTE | 2024-12-10 00:27 | ER ---
Nurse's Notes [facility] Name: Kalen Pinedo Age: 79 yrs Sex: Male : 1945 Arrival Date: 12/09/2024 Time: 18:05 Bed 19 Private MD: Diagnosis: Retention of urine, unspecified;Acute kidney failure, unspecified;Hypo-osmolality and hyponatremia;Hypokalemia;Weakness Presentation: 12/09 18:29 Chief complaint: Patient states: 2 falls today. pt has laceration to bottom of left cm10 foot. Pt's daughter states that they are concerned due to patient having swelling to his legs. Coronavirus screen: Client denies travel out of the [place] in the last 14 days. Ebola Screen: Patient denies travel to an Ebola-affected area in the 21 days before illness onset. Initial Sepsis Screen: Does the patient meet any 2 criteria? No. Patient's initial sepsis screen is negative. Does the patient have a suspected source of infection? No. Patient's initial sepsis screen is negative. Risk Assessment: Do you want to hurt yourself or someone else? Patient reports no desire to harm self or others. Onset of symptoms was December 09, 2024. 18:29 Method Of Arrival: Wheelchair cm10 18:29 Acuity: ARELY 3 cm10 Triage Assessment: 18:30 General: Appears in no apparent distress. comfortable, Behavior is calm, cooperative. cm10 Neuro: No deficits noted. Level of Consciousness is awake, alert, obeys commands, Oriented to person, place, time, situation, Appropriate for age. Respiratory: No deficits noted. Airway is patent Respiratory effort is even, unlabored, Respiratory pattern is regular, symmetrical. Historical: - Allergies: 18:30 No Known Allergies; cm10 - PMHx: 18:30 Hypertensive disorder; Congestive heart failure; cm10 - Immunization history:: Adult Immunizations up to date. - Infectious Disease History:: Denies. - Social history:: Smoking status: Patient denies any tobacco usage or history of. Screenin:48 [facility] ED Fall Risk Assessment (Adult) History of falling in the last 3 months, al5 including since admission Yes- single mechanical fall (1 pt) Confusion or Disorientation No (0 pts) Intoxicated or Sedated No (0 pts) Impaired Gait Yes (1 pt) Mobility Assist Device Used Yes (1 pt) Altered Elimination No (0 pt) Score/Fall Risk Level 0 - 2 = Low Risk Oriented to surroundings, Maintained a safe environment, Provided non-skid footwear. Abuse screen: Denies threats or abuse. Denies injuries from another. Nutritional screening: No deficits noted. Tuberculosis screening: No symptoms or risk factors identified. Assessment: 23:47 Reassessment: assumed care of patient at this time. al5 23:48 General: Appears in no apparent distress. comfortable. Pain: Complains of pain in al5 abdomen. Neuro: Level of Consciousness is awake, alert, obeys commands, Oriented to person, place, time, situation. Cardiovascular: Capillary refill < 3 seconds Patient's skin is warm and dry. Respiratory: Airway is patent Respiratory effort is even, unlabored, Respiratory pattern is regular, symmetrical. GI: Abdomen is round distended, obese, Abd is non tender Abd is rigid X 4 quads. : Reports inability to void, urgency. EENT: No signs and/or symptoms were reported regarding the EENT system. Derm: Skin swelling to bilateral legs, blistering/almost weeping to bilateral lower legs. patient has superficial nonbleeding wound to bottom of L foot. Musculoskeletal: Reports generalized weakness. 12/10 00:30 Reassessment: Patient appears in no apparent distress at this time. No changes from al5 previously documented assessment. Patient and/or family updated on plan of care and expected duration. Pain level reassessed. Patient is alert, oriented x 3, equal unlabored respirations, skin warm/dry/pink. 02:00 Reassessment: Patient appears in no apparent distress at this time. No changes from al5 previously documented assessment. Patient and/or family updated on plan of care and expected duration. Pain level reassessed. Patient is alert, oriented x 3, equal unlabored respirations, skin warm/dry/pink. 03:05 Reassessment: Patient appears in no apparent distress at this time. No changes from al5 previously documented assessment. Patient and/or family updated on plan of care and expected duration. Pain level reassessed. Patient is alert, oriented x 3, equal unlabored respirations, skin warm/dry/pink. 07:00 Reassessment: No changes from previously documented assessment. Report received from ll1 film processing shift supervisor RN. Vital Signs: 12/09 18:29 BP 140 / 77; Pulse 71; Resp 15; Temp 98.6; Pulse Ox 95% ; Weight 90.72 kg; Height 5 ft. cm10 11 in. ; Pain 2/10; 22:53 BP 169 / 79; Pulse 72; Resp 19; Pulse Ox 98% on R/A; al5 23:15 BP 137 / 90; Pulse 72; Resp 22; Pulse Ox 99% on R/A; al5 23:30 BP 181 / 76; Pulse 69; Resp 22; Pulse Ox 99% on R/A; al5 23:45 BP 171 / 73; Pulse 73; Resp 22; Pulse Ox 98% on R/A; al5 12/10 00:00 BP 180 / 68; Pulse 75; Resp 21; Pulse Ox 100% on R/A; al5 00:15 BP 169 / 76; Pulse 75; Resp 21; Pulse Ox 100% on R/A; al5 00:30 BP 164 / 64; Pulse 77; Resp 20; Pulse Ox 99% on R/A; al5 01:00 BP 162 / 64; Pulse 75; Resp 20; Pulse Ox 99% on R/A; al5 01:30 BP 157 / 64; Pulse 72; Resp 19; Pulse Ox 98% on R/A; al5 02:00 BP 156 / 72; Pulse 72; Resp 21; Pulse Ox 97% on R/A; al5 02:30 BP 153 / 61; Pulse 72; Resp 17; Pulse Ox 97% on R/A; al5 03:00 BP 140 / 68; Pulse 71; Resp 16; Pulse Ox 96% on R/A; al5 07:49 BP 148 / 59; Pulse 73; Resp 16; Pulse Ox 98% ; ll1 12/09 18:29 Body Mass Index 27.89 (90.72 kg, 180.34 cm) cm10 12/09 18:29 Pain Scale: Adult cm10 ED Course: 12/09 18:10 Patient arrived in ED. ra3 18:12 Vinayak Barros PA is PHCP. cp 18:12 Vinayak Bhatt MD is Attending Physician. cp 18:30 Triage completed. cm10 18:30 Arm band placed on right wrist. Patient placed in waiting room, in a wheelchair. cm10 21:15 XRAY Chest (1 view) In Process Unspecified. EDMS 21:44 Basic Metabolic Panel Sent. cm10 21:44 CBC with Diff Sent. cm10 21:44 LFT's Sent. cm10 21:44 Magnesium Sent. cm10 21:44 NT PRO-BNP Sent. cm10 21:44 PT-INR Sent. cm10 21:44 Troponin HS Sent. cm10 21:45 Initial lab(s) drawn, by me, sent to lab. Inserted saline lock: 20 gauge in left cm10 forearm, using aseptic technique. Blood collected. Flushed with 10 mL NS. 22:48 EKG done, by ED staff, reviewed by Vinayak MALAGON. hw 22:53 Candelaria Yadav, RN is Primary Nurse. al5 23:14 First set of blood cultures drawn by me. hw 23:21 Blood Culture Adult (2) Sent. hw 23:21 Lactate w/ 2H reflex if indic. Sent. hw 23:21 Ptt, Activated Sent. hw 23:46 called Nephrology answering service to page Dr. Esqueda. sp 12/10 00:00 Patient has correct armband on for positive identification. Bed in low position. Call al5 light in reach. Side rails up X2. Provided Education on: plan of care. 00:00 Villa cath inserted, using sterile technique, 16 Fr., by me, balloon inflated, to al5 gravity drainage, urine specimen collected. other patient placed out 1500 mL of orange urine. patient daughter states he has been taking Azo OTC. provider notified and aware Patient tolerated well. 00:21 No provider procedures requiring assistance completed. al5 00:25 Uri Jose MD is Hospitalizing Provider. cp 00:44 US Extremity Venous W Compression Chalo In Process Unspecified. EDMS 00:45 US Rp Exam Complete In Process Unspecified. EDMS 03:12 Patient admitted, IV remains in place. al5 06:23 Primary Nurse role handed off by Candelaria Yadav, RN eb Administered Medications: 12/09 23:17 CANCELLED (Physician Discretion): [id number] grams PO once cp 23:56 Drug: Sodium Bicarbonate IVP 1 amp IVP once; (50 mL); equals 50 mEq Route: IVP; Site: al5 left forearm; 12/10 02:20 Follow up: Response: No adverse reaction al5 12/09 23:56 Drug: Calcium Gluconate IVPB 1 grams IVPB once over 1 hrs; (mix in NS 100 mL) Route: al5 IVPB; Infused Over: 1 hrs; Site: left forearm; 12/10 02:20 Follow up: Response: No adverse reaction; IV Status: Completed infusion; IV Intake: al5 100ml 12/09 23:56 Drug: Kayexalate PO 30 grams PO once Route: PO; al5 12/10 02:21 Follow up: Response: No adverse reaction al5 12/09 23:57 Drug: NS 0.9% IV 500 ml 500 ml IV at 1 bolus once; to be given as a bolus over 60 al5 minutes Volume: 500 ml; Route: IV; Rate: 1 bolus; Site: left forearm; 12/10 02:20 Follow up: IV Status: Completed infusion; IV Intake: 500ml al5 12/09 23:57 Drug: Albuterol Inhalation 2.5 mg Inhalation continuous x3 Route: Inhalation; al5 23:57 Drug: Insulin Regular Human Sub-Q 10 units Sub-Q once {Co-Signature: dd2 (SAL LIANG RN).} Route: Sub-Q; Site: left upper arm; 12/10 02:20 Follow up: Response: No adverse reaction al5 12/09 23:57 Drug: D50W IVP 50 ml IVP once; (1 amp) Route: IVP; Site: left forearm; al5 12/10 02:20 Follow up: Response: No adverse reaction al5 02:20 Drug: Cefepime IVPB 2 grams IVPB at 200 ml/hr once over 30 mins; (mix in NS 100 mL) al5 Route: IVPB; Rate: 200 ml/hr; Infused Over: 30 mins; Site: left forearm; 02:21 Follow up: Response: No adverse reaction; IV Status: Infusion continued upon admission al5 Medication: 00:00 VIS not applicable for this client. al5 Intake: 02:20 IV: 100ml; Total: 100ml. al5 02:20 IV: 500ml; Total: 600ml. al5 Output: 08:01 Urine: 1100ml (Villa); Total: 1100ml. ll1 Outcome: 00:26 Decision to Hospitalize by Provider. cp 00:30 Admitted to ER Hold. Please see [facility] for further documentation. al5 00:30 Condition: stable 00:30 Instructed on the need for admit, 08:01 Patient left the ED. ll1 Signatures: Dispatcher [employer] EDMS Carrie Skinner Corey, PA PA cp Botello, Elizabeth eb Lewis, Lynsay RN RN ll1 Mariel Guerra RN RN cm10 Zehra Vanegas RN RN me1 Eleni Steele ra3 Candelaria Yadav RN RN al5 Paulette Whiting DIANA RN dd2 Corrections: (The following items were deleted from the chart) 12/09 19:28 18:29 Chief complaint: Patient states: 2 falls today. pt has laceration to bottom of me1 left foot. Pt's daughter states that they are concerned due to patient having swelling to his legs. cm10 12/10 00:19 00:17 Insulin Regular Human Sub-Q 10 units Sub-Q in left upper arm al5 al5
--- NOTE | 2024-12-10 00:27 | EDPHYS ---
Physician Documentation [facility] Name: Kalen Pinedo Age: 79 yrs Sex: Male : 1945 Arrival Date: 12/09/2024 Time: 18:05 Bed 19 Private MD: ED Physician Vinayak Bhatt HPI: 12/09 20:20 This 79 yrs old Male presents to ER via Wheelchair with complaints of Fall cp Injury, Laceration To Foot. 20:20 The patient's problem is reported as weakness, that is generalized. cp 20:20 Onset: The symptoms/episode began/occurred gradually. Duration: The episode is cp continuous. 20:20 Associated signs and symptoms: Pertinent positives: swelling/edema of lower legs. cp Historical: - Allergies: 18:30 No Known Allergies; cm10 - PMHx: 18:30 Hypertensive disorder; Congestive heart failure; cm10 - Immunization history:: Adult Immunizations up to date. - Infectious Disease History:: Denies. - Social history:: Smoking status: Patient denies any tobacco usage or history of. ROS: 20:25 Constitutional: Negative for body aches, chills, fever, poor PO intake, cp 20:25 Cardiovascular: Positive for edema, Negative for chest pain, palpitations, cp 20:25 Respiratory: Positive for shortness of breath, on exertion. 20:25 Eyes: Negative for injury, pain, redness, and discharge, cp 20:25 ENT: Negative for drainage from ear(s), ear pain, sore throat, difficulty swallowing, difficulty handling secretions, 20:25 Abdomen/GI: Negative for abdominal pain, vomiting, diarrhea, constipation, 20:25 Neuro: Positive for weakness, Negative for altered mental status, 20:25 All other systems are negative, Exam: 20:30 Constitutional: The patient appears in no acute distress, alert, awake, cp non-diaphoretic, non-toxic, well developed, well nourished, 20:30 Head/Face: Normocephalic, atraumatic. cp 20:30 Eyes: Periorbital structures: appear normal, Conjunctiva: normal, no exudate, no injection, Sclera: no appreciated abnormality, Lids and lashes: appear normal, bilaterally, 20:30 ENT: External ear(s): are unremarkable, Nose: is normal, Mouth: Lips: dry, Oral mucosa: moist, Posterior pharynx: Airway: no evidence of obstruction, patent, 20:30 Neck: ROM/movement: limited range of motion, is not appreciated, nuchal rigidity, is not appreciated, 20:30 Chest/axilla: Inspection: normal, 20:30 Cardiovascular: Rate: normal, Rhythm: regular, Edema: pedal edema, that is moderate, ankle edema, that is moderate, JVD: is not appreciated, 20:30 Respiratory: the patient does not display signs of respiratory distress, Respirations: shallow respirations, that is mild, Breath sounds: decreased breath sounds, that are mild, throughout, stridor, is not appreciated, 20:30 Abdomen/GI: Inspection: distension, that is mild, Palpation: soft, in all quadrants, mild abdominal tenderness, in the right lower quadrant and left lower quadrant, rebound tenderness, is not appreciated, 20:30 Back: vertebral tenderness, is not appreciated, 20:30 Skin: on the right lower leg and left lower leg, 20:30 Neuro: Orientation: to person, place \T\ time. Mentation: is normal, Cerebellar function: Romberg testing is negative, Motor: moves all fours, no focal deficits, 22:50 ECG was reviewed by the Attending Physician. cp Vital Signs: 18:29 BP 140 / 77; Pulse 71; Resp 15; Temp 98.6; Pulse Ox 95% ; Weight 90.72 kg; Height 5 ft. cm10 11 in. ; Pain 2/10; 22:53 BP 169 / 79; Pulse 72; Resp 19; Pulse Ox 98% on R/A; al5 23:15 BP 137 / 90; Pulse 72; Resp 22; Pulse Ox 99% on R/A; al5 23:30 BP 181 / 76; Pulse 69; Resp 22; Pulse Ox 99% on R/A; al5 23:45 BP 171 / 73; Pulse 73; Resp 22; Pulse Ox 98% on R/A; al5 02/08 00:00 BP 180 / 68; Pulse 75; Resp 21; Pulse Ox 100% on R/A; al5 00:15 BP 169 / 76; Pulse 75; Resp 21; Pulse Ox 100% on R/A; al5 00:30 BP 164 / 64; Pulse 77; Resp 20; Pulse Ox 99% on R/A; al5 01:00 BP 162 / 64; Pulse 75; Resp 20; Pulse Ox 99% on R/A; al5 01:30 BP 157 / 64; Pulse 72; Resp 19; Pulse Ox 98% on R/A; al5 02:00 BP 156 / 72; Pulse 72; Resp 21; Pulse Ox 97% on R/A; al5 02:30 BP 153 / 61; Pulse 72; Resp 17; Pulse Ox 97% on R/A; al5 03:00 BP 140 / 68; Pulse 71; Resp 16; Pulse Ox 96% on R/A; al5 07:49 BP 148 / 59; Pulse 73; Resp 16; Pulse Ox 98% ; ll1 12/09 18:29 Body Mass Index 27.89 (90.72 kg, 180.34 cm) cm10 12/09 18:29 Pain Scale: Adult cm10 MDM: 12/09 18:32 Medical Screening Exam initiated cp 22:00 Differential diagnosis: metabolic disorder, drug effects, kidney failure, chf, cp pulmonary edema. 12/10 00:30 Data reviewed: vital signs, nurses notes, lab test result(s), EKG, radiologic studies, cp plain films, ultrasound, and as a result, I will admit patient. 00:30 Management of patient was discussed with the following: Hospitalist: DR Jose will cp admit after discussion. Consult with nephrology, DR Burks. I considered the following discharge prescriptions or medication management in the emergency department Medications were administered in the Emergency Department. See MAR. Independent interpretation of the following test(s) in the Emergency Department EKG: See my EKG interpretation above. Care significantly affected by the following chronic conditions: Hypertension, Congestive Heart Failure. Counseling: I had a detailed discussion with the patient and/or guardian regarding the historical points, exam findings, and any diagnostic results supporting the discharge/admit diagnosis, lab results, radiology results, the need for further work-up and treatment in the hospital. 12/09 20:15 Order name: Urinalysis W/Microscopic cp 12/09 20:15 Order name: Basic Metabolic Panel; Complete Time: 23:44 cp 12/09 22:42 Interpretation: Normal except: NA 119; K 6.3; CL 94; CO2 18; GLUC 109; BUN 28; CRE cp 3.68; GFR 16. 12/09 20:15 Order name: CBC with Diff; Complete Time: 22:21 cp 12/09 22:22 Interpretation: Normal except: WBC 16.90; RBC 4.11; HGB 12.4; HCT 36.8; PLT 416; MPV cp 6.7; HIRAL% 78.8; LYM% 12.2; NEUT A 13.3. 12/09 20:15 Order name: LFT's; Complete Time: 23:44 cp 12/09 20:15 Order name: Magnesium; Complete Time: 23:44 cp 12/09 20:15 Order name: NT PRO-BNP; Complete Time: 23:44 cp 12/09 22:42 Interpretation: NT PRO-BNP 1673; Reviewed. cp 12/09 20:15 Order name: PT-INR; Complete Time: 22:21 cp 12/09 20:15 Order name: Troponin HS; Complete Time: 23:44 cp 12/09 22:49 Order name: Ptt, Activated; Complete Time: 00:19 cp 12/09 22:49 Order name: Lactate w/ 2H reflex if indic.; Complete Time: 00:19 cp 12/09 22:49 Order name: Blood Culture Adult (2) cp 12/09 23:30 Order name: Creatine Phosphokinase; Complete Time: 23:44 EDMS 12/10 00:37 Order name: Glucose, Ancillary Testing EDMS 12/10 03:40 Order name: Urinalysis w/ reflexes EDMS 12/10 03:40 Order name: CBC with Automated Diff EDMS 12/10 03:40 Order name: CBC with Automated Diff EDMS 12/10 03:40 Order name: Comprehensive Metabolic Panel EDMS 12/10 03:40 Order name: Comprehensive Metabolic Panel EDMS 12/10 03:40 Order name: Magnesium EDMS 02 03:40 Order name: Magnesium EDMS 12/10 03:40 Order name: Phosphorus EDMS 12/10 03:40 Order name: Phosphorus EDMS 12/10 03:42 Order name: Basic Metabolic Panel EDMS 12/10 03:42 Order name: Magnesium EDMS / 03:42 Order name: Phosphorus EDMS 12/09 20:15 Order name: XRAY Chest (1 view); Complete Time: 22:21 cp 12/09 22:48 Order name: US Extremity Venous W Compression Chalo cp 12/09 23:44 Order name: US Rp Exam Complete cp 12/09 20:15 Order name: EKG; Complete Time: 20:16 cp 12/09 20:15 Order name: Cardiac monitoring; Complete Time: 22:52 cp 12/09 20:15 Order name: EKG - Nurse/Tech; Complete Time: 22:52 cp 12/09 20:15 Order name: IV Saline Lock; Complete Time: 21:44 cp 12/09 20:15 Order name: Labs collected and sent; Complete Time: 21:44 cp 12/09 20:15 Order name: O2 Per Protocol; Complete Time: 22:54 cp 12/09 20:15 Order name: O2 Sat Monitoring; Complete Time: 22:54 cp 12/09 22:49 Order name: Villa; Complete Time: 00:21 cp EC/07 22:50 Rate is 71 beats/min. Rhythm is regular. NE interval is normal. QRS interval is normal. cp QT interval is normal. T waves are Inverted in lead aVR. Interpreted by me. Reviewed by me. Administered Medications: 23:17 CANCELLED (Physician Discretion): [id number] grams PO once cp 23:56 Drug: Sodium Bicarbonate IVP 1 amp IVP once; (50 mL); equals 50 mEq Route: IVP; Site: al5 left forearm; 12/10 02:20 Follow up: Response: No adverse reaction al5 12/09 23:56 Drug: Calcium Gluconate IVPB 1 grams IVPB once over 1 hrs; (mix in NS 100 mL) Route: al5 IVPB; Infused Over: 1 hrs; Site: left forearm; 12/10 02:20 Follow up: Response: No adverse reaction; IV Status: Completed infusion; IV Intake: al5 100ml 12/09 23:56 Drug: Kayexalate PO 30 grams PO once Route: PO; al5 12/10 02:21 Follow up: Response: No adverse reaction al5 12/09 23:57 Drug: NS 0.9% IV 500 ml 500 ml IV at 1 bolus once; to be given as a bolus over 60 al5 minutes Volume: 500 ml; Route: IV; Rate: 1 bolus; Site: left forearm; 12/10 02:20 Follow up: IV Status: Completed infusion; IV Intake: 500ml al5 12/09 23:57 Drug: Albuterol Inhalation 2.5 mg Inhalation continuous x3 Route: Inhalation; al5 23:57 Drug: Insulin Regular Human Sub-Q 10 units Sub-Q once {Co-Signature: dd2 (SAL LIANG RN).} Route: Sub-Q; Site: left upper arm; 12/10 02:20 Follow up: Response: No adverse reaction 12/09 23:57 Drug: D50W IVP 50 ml IVP once; (1 amp) Route: IVP; Site: left forearm; 12/10 02:20 Follow up: Response: No adverse reaction 02:20 Drug: Cefepime IVPB 2 grams IVPB at 200 ml/hr once over 30 mins; (mix in NS 100 mL) al5 Route: IVPB; Rate: 200 ml/hr; Infused Over: 30 mins; Site: left forearm; 02:21 Follow up: Response: No adverse reaction; IV Status: Infusion continued upon admission al Disposition: 12/11 05:26 Chart complete. cp Disposition Summary: 12/10/24 00:26 Hospitalization Ordered Notes: Hospitalization Status: Inpatient Admission cp Provider: Uri Jose cp Condition: Stable cp Problem: new cp Symptoms: have improved cp Bed/Room Type: Standard cp Location: Telemetry/MedSurg (Inpatient)(12/10/24 06:15) eb Room Assignment: 407(12/10/24 06:15) eb Diagnosis - Retention of urine, unspecified cp - Acute kidney failure, unspecified cp - Hypo-osmolality and hyponatremia cp - Hypokalemia cp - Weakness cp Forms: - Medication Reconciliation Form cp - SBAR form cp - Leadership Thank You Letter cp Addendum: 12/18/2024 08:41 Co-signature as Attending Physician, Vinayak Bhatt MD I agree with the assessment and c alfred plan of care. Signatures: Dispatcher [employer] [facility] Vinayak Bhatt MD MD cha Pinkerton, Shawna sp Page, Corey, PA PA cp Daniela Forrest Clarissa, RN RN cm10 Candelaria Yadav RN RN al5 DAVIS, DIANA RN dd2 Corrections: (The following items were deleted from the chart) 12/09 23:17 22:58 Kayexalate PO 45 grams PO once ordered. cp cp 23:32 22:58 CREATINE PHOSPHOKINASE+C.LAB.BRZ ordered. [facility] EDMS 12/10 00:28 12/09 20:15 Bladder Scanner ordered. cp al5 12/10 01:06 00:26 Telemetry/MedSurg (Inpatient) cp sp : 00:26 cp sp 06:15 01:06 [facility] ER HOLD sp eb 06:15 01:06 ERHOLD- sp eb
[2024-12-10 01:22] LABS: Specific Gravity 1.012 (1.005-1.030); Sqamous Epithelial None Seen /HPF (None Seen); Urine Bacteria None Seen /HPF (<20); Urine Bilirubin 1+ (Negative); Urine Blood Negative (Negative); Urine Clarity Clear (Clear); Urine Color Dark-Yellow (Yellow); Urine Culture Reflex Order NOT NEEDED; Urine Glucose NEGATIVE (Negative); Urine Ketones NEGATIVE (Negative); Urine Micro Reflex YN NO BILL MICROSCOPIC; Urine Nitrite 1+ (Negative); Urine Protein NEGATIVE (Negative); Urine RBC <5 /HPF (None Seen); Urine Urobilinogen 1+ (Normal); Urine WBC <5 /HPF (<5); Urine WBC Clump Rare /HPF (None Seen)
[2024-12-10] MEDS ORDERED: CEFEPIME 2 GM VIAL ONE (02:06)
[2024-12-10] MEDS ORDERED: NA CHLORIDE 0.9% 100 ML ONE (02:06)
--- NOTE | 2024-12-10 02:23 | RAD REPORT ---
EXAM: US Duplex Bilateral Lower Extremities Veins CLINICAL HISTORY: The patient is 79 years old and is Male; SWELLING TECHNIQUE: Real-time duplex ultrasound scan of the bilateral lower extremity veins integrating B-mode two-dime nsional vascular structure, Doppler spectral analysis, color flow Doppler imaging and compression. COMPARISON: No relevant prior studies available. FINDINGS: RIGHT DEEP VEINS: Unremarkable. No DVT in the visualized common femoral, femoral, proximal deep femoral, popliteal, posterior tibial veins. The veins demonstrate normal color flow, are normally compressible, with normal phasic flow and/or augmentation response. RIGHT SUPERFICIAL VEINS: Unremarkable. No thrombus in the visualized right great saphenous vein . LEFT DEEP VEINS: Unremarkable. No DVT in the visualized common femoral, femoral, proximal deep femoral, popliteal, posterior tibial veins. The veins demonstrate normal color flow, are normally compressible, with normal phasic flow and/or augmentation response. LEFT SUPERFICIAL VEINS: Unremarkable. No thrombus in the visualized left great saphenous vein. SOFT TISSUES: No acute findings. No popliteal cyst. IMPRESSION: Normal bilateral lower extremity duplex venous ultrasound. Electronically signed by: Adelina Murphy MD 12/10/2024 02:07 AM [facility] Due to temporary technical issues with the PACS/[employer] reporting system, reports are being sign ed by the in-house radiologist without review as a courtesy to ensure prompt reporting the interpreting rad iologist is fully responsible for the content of the report. Transcribed Date/Time: 12/10/2024 2:22 AM
--- NOTE | 2024-12-10 03:17 | RAD REPORT ---
US RETROPERITONEUM HISTORY: Urine retention TECHNIQUE: Grayscale, color Doppler evaluation of the kidneys and urinary bladder. COMPARISON: None FINDINGS: Evaluation is limited by overlying bowel gas. RIGHT KIDNEY: Dimension: 11.8 x 4.6 x 6.9 cm. Cortex: Grossly normal echogenicity. No focal thinning. Hydronephrosis: None. Stones: None. Cyst/masses: None. LEFT KIDNEY: Dimension: 12.0 x 5.6 x 7.2 cm. Cortex: Grossly normal echogenicity. No focal thinning. Hydronephrosis: None. Stones: None. Cyst/masses: None. BLADDER: Decompressed with a Villa catheter in place. IMPRESSION: Negative renal ultrasound. Electronically signed by: Alexia Simons MD 12/10/2024 03:14 AM [facility] Due to temporary technical issues with the PACS/[employer] reporting system, reports are being sign ed by the in-house radiologist without review as a courtesy to ensure prompt reporting the interpreting rad iologist is fully responsible for the content of the report. Transcribed Date/Time: 12/10/2024 3:17 AM
[2024-12-10] MEDS ORDERED: ONDANSETRON 4 MG/2 ML VIAL IV PRN (03:35)
[2024-12-10] MEDS ORDERED: ACETAMINOPHEN 325 MG TABLET PO PRN (03:35)
--- NOTE | 2024-12-10 03:43 | P.HP ---
Certification for Inpatient Patient admitted to: Inpatient With expected LOS: >2 Midnights Practitioner: I am a practitioner with admitting privileges, knowledge of patient current condition, hospital course, and medical plan of care. Services: Services provided to patient in accordance with Admission requirements found in Title 42 Section 412.3 of the Code of Federal Regulations Patient History Date of Service: 12/10/24 Reason for admission: Hyperkalemia /KATE History of Present Illness: 79 yo male with history of hypertension, COPD/ ? asbestosis,chronic diastolic congestive heart failure presents to emergency department for generalized weakness, fatigue and dizziness which has been going on for the last week and was brought to ER. Patient is a poor historian hence most of the history is obtained from the chart review and also talking to the ER physician. Patient had a previous history of hyponatremia. He also complains of swelling of lower extremities. Patient was assessed in the ER and found to be hyperkalemic with potassium of 6.3 and urinary retention with elevated renal parameters with a creatinine of 3.68. Villa was placed. Patient is being admitted for further management. Allergies No Known Allergies Allergy (Verified 12/10/24 03:37) Home Medications: Lisinopril [Zestril] 1 tab PO BID 05/13/21 Torsemide 10 mg PO DAILY #30 tablet 05/14/21 Amlodipine Besylate [Norvasc] 2.5 mg PO DAILY 12/10/24 Atorvastatin Calcium [Lipitor] 40 mg PO BEDTIME 12/10/24 Carvedilol [Coreg] 12.5 mg PO BID 12/10/24 - Past Medical/Surgical History Diabetic: No Past Medical History: Reviewed- Non-Contributory -: Hypertension -: Asbestos exposure (suspected COPD) -: Suspected chronic diastolic congestive heart failure Past Surgical History: Reviewed- Non-Contributory -: none Psychosocial/ Personal History: Lives with family - Family History Father Notes: pt adopted - Social History Smoking Status: Never smoker Alcohol use: No CD- Drugs: No Caffeine use: No Review of Systems 10-point ROS is otherwise unremarkable Physical Examination - Vital Signs Temperature: 97.9 F Blood Pressure: 138/74 Pulse: 78 Respirations: 18 Pulse Ox (%): 94 - Physical Exam General: Alert, Oriented x3, Mild distress HEENT: Atraumatic, Normocephalic Neck: Supple Respiratory: Clear to auscultation bilaterally, Normal air movement Cardiovascular: Regular rate/rhythm, Normal S1 S2 Capillary refill: <2 Seconds Gastrointestinal: Soft and benign, W/out hepatosplenomegaly Musculoskeletal: No clubbing, Swelling Integumentary: No rashes Neurological: Normal speech, Normal strength at 5/5 x4 extr, Cranial nerves 3-12 intact Lymphatics: No axilla or inguinal lymphadenopathy - Studies Laboratory Data (last 24 hrs) 12/09/24 12/09/24 12/09/24 23:14 21:43 21:43 WBC 16.90 H Hgb 12.4 L Hct 36.8 L Plt Count 416 H PT Cancelled 12.4 INR Cancelled 1.18 APTT 28.6 Sodium Potassium BUN Creatinine Glucose Magnesium Total Bilirubin AST ALT Alkaline Phosphatase 12/09/24 21:43 WBC Hgb Hct Plt Count PT INR APTT Sodium 119 L* Potassium 6.3 H* BUN 28 H Creatinine 3.68 H Glucose 109 H Magnesium 2.3 Total Bilirubin 0.9 AST 17 ALT 17 Alkaline Phosphatase 102 Assessment and Plan - Plan Hyponatremia Hyperkalemia Acute kidney injury Urinary retention Possible obstructive uropathy Hypertension Acute on chronic diastolic CHF Leukocytosis Plan Retention of urine To rule out obstructive uropathy Monitor closely on telemetry Antihyperkalemic measures Renal parameters monitor Monitor strict I &O's Nephrology consulted Villa was placed in the ER Ultrasound kidneys negative Will get a PSA level Acute on chronic CHF diastolic Monitor closely on telemetry Started on diuresis X-ray findings consistent with CHF Oxygen supplementation as needed Continue home medications Titrate as needed Will obtain an echocardiogram Hypertension Antihypertensives titrated Continue home medications and titrate as needed Hyperlipidemia Continue statin 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
[2024-12-10 03:51] VITALS: BMI 27.8
[2024-12-10] MEDS: SODIUM ZIRCONIUM CYCLOSILICATE 10 GM/PKT PO ONE ×2 (06:09→09:15)
[2024-12-10 06:26] LABS: Anion Gap 13.1 mEq/L (5.0-15.0); Magnesium 2.1 mg/dL (1.6-2.4); Phosphorus 4.1 mg/dL (2.5-4.9); Potassium 5.1 mEq/L (3.5-5.1)
[2024-12-10] MEDS: HEPARIN 5000 UNIT/ML 1 ML VIAL SQ SCH (09:00)
[2024-12-10] MEDS: CEFTRIAXONE 1,000 MG in NA CHLORIDE 0.9% 50 ML IVPB SCH (09:15)
[2024-12-10] MEDS: FUROSEMIDE 40 MG/4 ML VIAL IV SCH (09:16)
--- NOTE | 2024-12-10 17:52 | CON ---
Date of Consultation: 12/10/2024 Reason For Consultation: Elevated BUN, creatinine. History Of Present Illness: This is a pleasant 79-year-old gentleman with significant past medical h istory of hypertension, COPD, congestive heart failure, diastolic dysfunction. The patient was in hi s regular state of health. The patient came to the hospital complaining of increased leg swelling in the lower extremities and shortness of breath, found to have hyperkalemia with elevation of creatini ne to 3.6. For that reason, we have been consulted. The patient admits that he has been taking nons teroid on a daily basis for the last 3-4 weeks. The patient was started on IV hydration. Kidney fun ction started improving, hyperkalemia resolved. Past Medical History: Includes: 1. Hypertension. 2. Congestive heart failure. 3. COPD. Home Medications: Include atorvastatin, carvedilol, amlodipine, torsemide, and lisinopril. Current Medications: Include Tylenol, Lasix. Allergies: NO KNOWN DRUG ALLERGY. Past Surgical History: Negative. Family History: Positive for hypertension. Social History: Denied smoking. Denied drinking. Denied drug abuse. Review of Systems: Head and Neck: No red eye. No ear pain. GI: No nausea, no vomiting. : No polyuria, no dysuria, no hematuria. Has Villa. Exhauster Engineer: Not applicable. Respiratory: Has shortness of breath. Cardiovascular: No chest pain. Endocrine: No polydipsia. Skin: No rash. Neuro: Has weakness, fatigue. Musculoskeletal: Generalized fatigue. Physical Examination: Vital Signs: When I saw the patient, blood pressure 139/69, pulse of 52, afebrile. Chest: Faint rales bilateral. Heart: S1, S2, systolic murmur. Abdomen: Soft, nontender. Extremities: Trace edema. Neurologic: Alert, no focality. Lab: Chest x-ray, cardiomegaly with congestion. Upon admission, sodium 119, potassium 6.3, creatini ne 3.6. Today, sodium 124, potassium 5.1, bicarb 20, BUN 28, creatinine 3.2, GFR of 18. Calcium 8.6 , phosphorus 4.1, magnesium 2.1. WBC 16.9, hemoglobin 12.2. Assessment And Plan: 1. Acute kidney injury secondary to cardiorenal superimposed with RACHELE inhibitor and nonsteroid, on re covery, looked to me still on the dry side. I am going to continue with diuresis. Keep holding thania nopril and we will follow up the patient. 2. Hyperkalemia secondary to renal failure superimposed with RACHELE inhibitor. Discontinue RACHELE inhibito r. Continue diuresis. 3. Hyponatremia, dilutional. On recovery. We will continue diuresis. 4. Acidosis secondary to renal failure. No need for bicarb. MA/MODL Voice ID: [id number] Report ID: [id number]
[2024-12-10] MEDS: NA CHLORIDE 0.9% 1,000 ML IV SCH (19:00)
[2024-12-10 19:13] LABS: UR PROTEIN 7.3 mg/dL (<11.9)
[2024-12-10 19:25] LABS: UR CREAT < 18.0 mg/dL (20-370)
[2024-12-10 20:21] LABS: Specific Gravity 1.005 (1.005-1.030); Sqamous Epithelial None Seen /HPF (None Seen); Urine Bacteria <20 /HPF (<20); Urine Bilirubin NEGATIVE (Negative); Urine Blood Negative (Negative); Urine Clarity Clear (Clear); Urine Color Light-Yellow (Yellow); Urine Culture Reflex Order NOT NEEDED; Urine Glucose NEGATIVE (Negative); Urine Ketones NEGATIVE (Negative); Urine Microscopic Reflex YN ORDER UMIC; Urine Mucus Slight /HPF (None Seen); Urine Nitrite NEGATIVE (Negative); Urine Protein NEGATIVE (Negative); Urine RBC <5 /HPF (None Seen); Urine Urobilinogen Normal (Normal); Urine WBC <5 /HPF (<5)
[2024-12-10] MEDS: NYSTATIN PWDR 100000 UNIT/GM TOP SCH (21:00)
[2024-12-11] MEDS: ZOLPIDEM TARTRATE 5 MG TABLET PO PRN ×2 (03:24→22:03)
[2024-12-11] MEDS: GUAIFENESIN/DM 5 ML UCUP PO ONE (03:24)
[2024-12-11] MEDS: METHYLPREDNISOLONE 40 MG INJ IV SCH (05:43)
[2024-12-11 11:46] LABS: Absolute Basophils 0.1 K/uL (0-0.5); Absolute Lymphocytes (CBC) 1.5 K/uL (0.7-4.9); Absolute Monocytes 0.3 K/uL (0.1-1.3); Absolute Neutrophil 15.8 K/uL (1.8-8.0); Basophils % 0.5 % (0-1.3); Hematocrit 37.7 % (39.6-49.0); Hemoglobin 12.9 g/dL (13.6-17.9); Lymphocytes % 8.4 % (15.3-44.8); MCH 30.5 pg (27.0-35.0); MCHC 34.2 g/dL (32.0-36.0); MCV 89.3 fL (80-100); Monocytes % 1.5 % (3.3-12.3); Neutrophils % 89.6 % (41.7-73.7); Nucleated Red Blood Cells % 0.1 % (0-0); Platelets 428 thou/uL (152-406); RBC Red Blood Cell Count 4.22 M/uL (4.33-5.43); Red Cell Distribution Width 13.7 % (12.1-15.2)
[2024-12-11 12:15] LABS: Albumin 2.8 g/dL (3.4-5.0); Albumin/Globulin Ratio 0.6 (1.1-1.8); Anion Gap 10.8 mEq/L (5.0-15.0); Bilirubin Total 0.5 mg/dL (0.2-1.0); Magnesium 1.9 mg/dL (1.6-2.4); Phosphorus 3.1 mg/dL (2.5-4.9); Potassium 4.8 mEq/L (3.5-5.1); Protein, Total 7.8 g/dL (6.4-8.2); Thyroid Stimulating Hormone 1.28 uIU/mL (0.358-3.740)
[2024-12-11 12:18] LABS: Platelet Estimate ADEQ; White Blood Cell Scan OK (OK)
[2024-12-11 12:19] LABS: Blood Morphology Comment NOT SEEN (NOT SEEN); Platelets Clumped NOTED
[2024-12-11] MEDS: NA CHLORIDE 0.9% 1,000 ML IV SCH (13:15)
--- NOTE | 2024-12-11 13:18 | P.DS ---
Discharge Date: 12/12/24 Disposition: ROUTINE DISCHARGE Discharge Condition: GOOD Reason for Admission: Hyperkalemia /KATE Consultations: Nephrology, Dr. Milligan Brief History of Present Illness: patient is an 79 yo male with history of hypertension, COPD/ ? asbestosis,chronic diastolic congestive heart failure presents to emergency department for generalized weakness, fatigue and dizziness which has been going on for the last week and was brought to ER. Patient is a poor historian hence most of the history is obtained from the chart review and also talking to the ER physician. Patient had a previous history of hyponatremia. He also complains of swelling of lower extremities. Patient was assessed in the ER and found to be hyperkalemic with potassium of 6.3 and urinary retention with elevated renal parameters with a creatinine of 3.68. Villa was placed. Patient is being admitted for further management. Hospital Course: Patient has done well during hospital stay. Patient's renal function is stable and improved significantly. Patient's potassium is back to baseline. Patient's sodium level has improved as well. Patient's Villa catheter was removed. Patient is anxious about going home but the daughter wants to arrange for home health prior to discharge. Patient will need to follow-up with nephrology in 1 week. Patient will need outpatient labs. Arrange for home health with physical therapy. Will add Flomax to patient's regimen. At this time, patient is stable for discharge home. Vital Signs/Physical Exam: Temp Pulse Resp BP Pulse Ox 97.2 F 73 18 145/74 H 96 12/11/24 12:00 12/11/24 12:00 12/11/24 12:00 12/11/24 12:00 12/11/24 12:00 General: Alert, In no apparent distress, Oriented x3 Laboratory Data at Discharge: WBC 17.60 thou/uL (4.3-10.9) H 12/11/24 11:30 Hgb 12.9 g/dL (13.6-17.9) L 12/11/24 11:30 Hct 37.7 % (39.6-49.0) L 12/11/24 11:30 Plt Count 428 thou/uL (152-406) H 12/11/24 11:30 PT Cancelled 12/09/24 23:14 INR Cancelled 12/09/24 23:14 APTT 28.6 SECONDS (24.3-36.9) 12/09/24 23:14 Sodium 131 mEq/L (136-145) L 12/11/24 11:30 Potassium 4.8 mEq/L (3.5-5.1) 12/11/24 11:30 BUN 29 mg/dL (7-18) H 12/11/24 11:30 Creatinine 2.53 mg/dL (0.70-1.30) H 12/11/24 11:30 Glucose 152 mg/dL (74-106) H 12/11/24 11:30 Phosphorus 3.1 mg/dL (2.5-4.9) 12/11/24 11:30 Magnesium 1.9 mg/dL (1.6-2.4) 12/11/24 11:30 Total Bilirubin 0.5 mg/dL (0.2-1.0) 12/11/24 11:30 AST 14 U/L (15-37) L 12/11/24 11:30 ALT 15 U/L (16-61) L 12/11/24 11:30 Alkaline Phosphatase 91 U/L (45-117) 12/11/24 11:30 Home Medications: Lisinopril [Zestril] 1 tab PO BID 05/13/21 Torsemide 10 mg PO DAILY #30 tablet 05/14/21 Amlodipine Besylate [Norvasc] 2.5 mg PO DAILY 12/10/24 Atorvastatin Calcium [Lipitor] 40 mg PO BEDTIME 12/10/24 Carvedilol [Coreg] 12.5 mg PO BID 12/10/24 Cefdinir [Cefdinir*] 300 mg PO BID #10 cap 12/11/24 Nystatin Powder [Mycostatin (Powder)*] 1 appl TOP BID #1 bottle 12/11/24 Tamsulosin [Flomax*] 0.4 mg PO BEDTIME #30 cap 12/11/24 predniSONE [Deltasone] 20 mg PO DAILY #5 tab 12/11/24 New Medications: Cefdinir [Cefdinir*] 300 mg PO BID #10 cap Tamsulosin [Flomax*] 0.4 mg PO BEDTIME #30 cap Nystatin Powder [Mycostatin (Powder)*] 1 appl TOP BID #1 bottle predniSONE [Deltasone] 20 mg PO DAILY #5 tab Physician Discharge Instructions: -DC IV and DC home -Follow-up with PCP in 1 to 2 weeks -Follow-up with Nephrology in 1 to 2 weeks -Please call Dr. Carrion at [phone] if any questions regarding hospital stay -Please call nursing station at [phone] if any nursing or medication questions -Return to the emergency room if symptoms worsen Diet: Renal Activity: Fall precautions Followup: Tom Martel MD [ACTIVE - CAN ADMIT] - ZULEYKA GARDINER [Primary Care Provider] - Reji Hope FNP [OUTSIDE PHYSICIAN] - Time spent managing pt's care (in minutes): 35
[2024-12-11] MEDS: TAMSULOSIN 0.4 MG SR CAP PO ONE (13:24)
[2024-12-11] MEDS: TAMSULOSIN 0.4 MG SR CAP PO SCH (17:54)
[2024-12-11] MEDS ORDERED: NA CHLORIDE 0.9% 1,000 ML IV SCH (18:00)
[2024-12-11] MEDS ORDERED: TAMSULOSIN 0.4 MG SR CAP PO SCH (21:00)
--- NOTE | 2024-12-11 23:00 | P.PN ---
Subjective Date of Service: 12/11/24 Patient is an 79-year-old gentleman who came to the hospital with hyperkalemia along with hyponatremia and KATE. Patient was treated with IV fluids and potassium was treated as well. Patient's electrolytes have improved. Renal function is much better. Patient is making a lot of urine output at this time. However, when Villa catheter was removed patient was not able to void and required straight catheterization. 900 cc of urine output with straight catheterization. Patient started on Flomax and will wait to reassess patient's urine output. Review of Systems 10-point ROS is otherwise unremarkable Physical Examination - Vital Signs Temperature: 97.8 F Blood Pressure: 153/85 Pulse: 89 Respirations: 17 Pulse Ox (%): 98 - Physical Exam General: Alert, In no apparent distress, Oriented x3 Neck: Supple, JVD not distended Respiratory: Clear to auscultation bilaterally, Normal air movement Cardiovascular: Regular rate/rhythm, Normal S1 S2, No murmurs Gastrointestinal: Normal bowel sounds, Soft and benign, Non-distended, No tenderness Musculoskeletal: No clubbing, No swelling, No tenderness Neurological: Sensation intact, Cranial nerves 3-12 intact - Studies Microbiology Data (last 24 hrs): 12/09/24 23:14 Blood - Blood Anaerobic Blood Culture - Final 12/09/24 23:14 Blood - Blood Anaerobic Blood Culture - Final Medications List Reviewed: Yes Assessment & Plan - Problems (Diagnosis) (1) KATE (acute kidney injury) Current Visit: Yes Status: Acute (2) Hyperkalemia Current Visit: Yes Status: Acute (3) Hyponatremia Current Visit: Yes Status: Acute (4) CHF (congestive heart failure) Current Visit: Yes Status: Acute (5) COPD (chronic obstructive pulmonary disease) Current Visit: Yes Status: Acute - Plan Plan: 1. patient with KATE and hyperkalemia along with hyponatremia; patient gently rehydrated and patient's potassium has improved. Renal function has gotten much better as well. Sodium is improved. However, patient with bladder retention after Villa catheter was removed. Patient has been on Flomax. If patient is able to void minimal urine output on bladder scan then we will go ahead and moved to proceed with discharge. If patient remains having bladder outlet obstruction then we may need to get Urology consultation. Patient's family recommended trying to get home health for continued care. Continue with antibiotics as well as gentle hydration. Repeat labs in a.m.. 2. Erythema of the lower extremities; questionable cellulitis. Continue with antibiotics. Continue with anti-inflammatories as needed 3. Heart failure with preserved ejection fraction; continue with outpatient cardiology follow-up 4. GI and DVT prophylaxis Discharge Plan: Home Plan to discharge in: 24 Hours - Advance Directives Does patient have a Living Will: Yes Does patient have a Durable POA for Healthcare: No - Code Status/Comfort Care Code Status: Full Code Critical Care: No Time Spent Managing PTS Care (In Minutes): 30
--- NOTE | 2024-12-11 23:32 | PN ---
Date of Progress Note: 12/11/2024 Subjective: The patient was admitted to the hospital with acute kidney injury. Today, Villa was rem christ, but the patient could not urinate. Physical Examination: Vital Signs: Blood pressure 153/85, pulse of 89, afebrile. Chest: Clear to auscultation. Heart: S1, S2. Regular. Abdomen: Soft, nontender. Extremities: Trace edema. Neurologic: Alert. No focality. Laboratory Data: WBC 17.6, hemoglobin 12.9. Sodium 131, potassium 4.8, bicarb 25, BUN 29, creatinin e 2.5, trending down; GFR 25, calcium 8.7, phosphorus 3.1, magnesium 1.9, albumin 2.8, corrected calc ium 9.5. Current Medications: Include: 1. Ceftriaxone. 2. Flomax. 3. Lasix 40 b.i.d. Assessment And Plan: 1. Acute kidney injury secondary to cardiorenal superimposed with RACHELE inhibitor and nonsteroidal use on the recovery phase. I am going to go ahead and discontinue IV fluid. Obstructive uropathy was ru led out with ultrasound, but the patient currently had urine retention. We will do bladder scan and we will follow up the patient. 2. Hyperkalemia secondary to renal failure, superimposed with RACHELE inhibitor. Keep holding RACHELE inhibi tor. No need for Lokelma. 3. Hyponatremia, dilutional. Discontinue IV fluid. Continue diuresis. 4. Acidosis secondary to renal failure, recovered, resolved. Continue current treatment. 5. Urine retention. We will do bladder scan. We will continue Flomax. JUDY/LAURIE Voice ID: [id number] Report ID: [id number]
[2024-12-12 06:21] LABS: Albumin 2.8 g/dL (3.4-5.0); Anion Gap 10.6 mEq/L (5.0-15.0); Phosphorus 3.4 mg/dL (2.5-4.9); Potassium 4.6 mEq/L (3.5-5.1)
[2024-12-12] MEDS: AMLODIPINE 2.5 MG TAB PO SCH (08:54)
[2024-12-12] MEDS: carvediloL 12.5 MG TAB PO SCH (08:54)
--- NOTE | 2024-12-12 11:19 | P.PN ---
Subjective Date of Service: 12/12/24 Chief Complaint: Hyperkalemia /KATE Subjective: Improving Patient ended up reinserting Villa catheter because he was not able to urinate and residual urine was almost 500 mL by bedside ultrasound. He has no complaint but he is scared to discharge home with indwelling Villa catheter. Telemetry overnight revealed frequent PVC and nonsustained VT, for which cardiology was consulted by a union organizer. Review of Systems Other: Consitutional; fever(-), chills (-), rigor(-), night sweat(-), unintentional weight loss(-), malaise (-) HEENT; diplopia (-), rhinorrhea (-), epistaxis (-), otorrhea (-), otalgia (-) Respiratory; shortness of breath (-), wheezing (-), cough (-), sputum (-), pleuritic chest pain (-) Cardiovascular; chest pain (-), peripheral edema (-), paroxysmal nocturnal dyspnea (-), orthopnea (-) Gastrointestinal; nausea (-), vomiting (-), abdominal pain (-), diarrhea (-), constipation (-), melena (-), hematochezia (-) Genitourinary; urinary frequency (-), dysuria (-), urgency (-), flank pain (-), gross hematuria (-), incontinence (-) Skin; rash (-), pruritus (-) PROJECT FACILITATOR; headache (-), paresthesia (-), numbness (-), paralysis (-) Physical Examination - Vital Signs Temperature: 97.5 F Blood Pressure: 185/77 Pulse: 93 Respirations: 18 Pulse Ox (%): 97 - Physical Exam Other Physical/Emotional Findings: - Physical Exam. General: Not acutely ill looking, in no apparent distress,. HEENT: Normocephalic, atraumatic, nonicteric sclera, nonanemic conjunctive. Neck: Supple, without JVD or goiter or thyroid mass. Respiratory: Normal breathing effort, clear to auscultation bilaterally, no crackles no wheezing or rhonchi. Cardiovascular: Regular rate and rhythm, S1, S2 normal, no murmur no gallop. Gastrointestinal: Normal bowel sounds, nondistended, nontender, No ascites, , No masses, no hepatosplenomegaly. Extremities : No clubbing, No peripheral edema, urine bag containing dwight- colored urine,. Integumentary: No rashes, petechia, suspected lesions. Lymphatics: No axilla or cervical lymphadenopathy. Neurology; alert awake oriented x3, no focal neurologic deficit, normal affection . mood and behavior. - Studies Medications List Reviewed: Yes Assessment And Plan - Plan Patient is an 79-year-old gentleman who came to the hospital with hyperkalemia along with hyponatremia and KATE on RACHELE inhibitor and torsemide. Patient was treated with IV fluids and potassium was treated as well. Patient's electrolytes have improved. Renal function is much better. Patient is making a lot of urine output at this time. However, when Villa catheter was removed patient was not able to void and required straight catheterization. #1 KATE and moderate hyperkalemia due to urinary retention with ACEI inhibitor and diuretic Improving, serum potassium down to 4.6 from 6.3, serum creatinine continued to trending down to 2.0, urine output almost 6 L later over the past 24-hour, no UTI by UA, urine culture pending, continue to hold lisinopril, #2 acute urinary retention likely due to BPH with bladder outlet obstruction We will continue Villa catheter, follow-up with urologist as outpatient, Flomike and Proscar #4 asymptomatic infrequent PVC Normokalemia, normal magnesium, I will increase carvedilol to 25 mg twice daily Disposition; plan to discharge home tomorrow
--- NOTE | 2024-12-12 11:53 | P.CNS ---
Date of Consult: 12/12/24 Chief Complaint: Hyperkalemia /KATE History of Present Illness: Patient with PMH of chronic diastolic heart failure, admitted for generalized weakness, malaise, cardiology were consulted for frequent PVCs, patient says that he had those for long period of time, denies chest pain, no palpitations, no syncope. Allergies No Known Allergies Allergy (Verified 12/10/24 03:37) Home medications list reviewed: Yes Home Medications: Lisinopril [Zestril] 1 tab PO BID 05/13/21 Torsemide 10 mg PO DAILY #30 tablet 05/14/21 Amlodipine Besylate [Norvasc] 2.5 mg PO DAILY 12/10/24 Atorvastatin Calcium [Lipitor] 40 mg PO BEDTIME 12/10/24 Carvedilol [Coreg] 12.5 mg PO BID 12/10/24 Cefdinir [Cefdinir*] 300 mg PO BID #10 cap 12/11/24 Nystatin Powder [Mycostatin (Powder)*] 1 appl TOP BID #1 bottle 12/11/24 Tamsulosin [Flomax*] 0.4 mg PO BEDTIME #30 cap 12/11/24 predniSONE [Deltasone] 20 mg PO DAILY #5 tab 12/11/24 - Past Medical/Surgical History Diabetic: No -: Hypertension -: Asbestos exposure (suspected COPD) -: Suspected chronic diastolic congestive heart failure -: none Psychosocial/ Personal History: Lives with family - Family History Father Notes: pt adopted - Social History Smoking Status: Never smoker Alcohol use: No CD- Drugs: No Caffeine use: No Place of Residence: [place] Review of Systems 10-point ROS is otherwise unremarkable Physical Examination Temp Pulse Resp BP Pulse Ox 97.5 F 93 H 18 185/77 H 97 12/12/24 11:18 12/12/24 11:18 12/12/24 11:18 12/12/24 11:18 12/12/24 11:18 General: Alert, In no apparent distress HEENT: Atraumatic, PERRLA, Mucous membr. moist/pink, EOMI, Sclerae nonicteric Neck: Supple, 2+ carotid pulse no bruit, No LAD, Without JVD or thyroid abnormality Respiratory: Clear to auscultation bilaterally, Normal air movement Cardiovascular: Regular rate/rhythm, Normal S1 S2 Gastrointestinal: Normal bowel sounds, No tenderness Musculoskeletal: No tenderness Integumentary: No rashes Neurological: Normal gait, Normal speech, Normal tone, Normal affect Lymphatics: No axilla or inguinal lymphadenopathy - Problems (1) PVC (premature ventricular contraction) Current Visit: Yes Status: Acute Plan: Patient usually sees a material control manager in [facility], mention that he had those PVCs for a long period of time, no symptoms. agree with increasing Coreg to 25 mg po BID. If burden still high then can switch to Toprol XL 100 mg daily continue to monitor on tele.
[2024-12-12] MEDS: ATORVASTATIN 40 MG TAB PO SCH (20:58)
[2024-12-12] MEDS: carvediloL 25 MG TAB PO SCH (20:58)
--- NOTE | 2024-12-13 00:09 | PN ---
Date of Progress Note: 12/12/2024 Chief Complaint: Acute kidney injury. Subjective: The patient was admitted to the hospital because of elevated BUN and creatinine levels. The patient was found to have hyponatremia. Recent sodium level was 131. Review of Systems: Denies chest pain, palpitation. Physical Examination: Lungs: Clear to auscultation bilaterally. Heart: S1, S2. Abdomen: Soft. Extremities: Trace edema. Laboratory Data: WBC 17.6, hemoglobin 12.9, sodium 131, potassium 4.8, bicarbonate 25, BUN 29, creat inine 2.5. Calcium 8.7, phosphorus 3.1, magnesium 1.9. Impression And Plan: 1. Acute kidney injury secondary to cardiorenal syndrome superimposed with RACHELE inhibitor and nonstero idal anti-inflammatory medication. In the recovery phase, the patient is tolerating p.o. intake. He completed IV fluids. Workup did not show obstructive uropathy. The patient had renal ultrasound. Although he was found to have urinary retention, Villa catheter was inserted when he was in the emerg ency room. 2. Bladder scan will be done to rule out urinary retention. Villa catheter was removed and plan is t o monitor bladder scan. 3. Hyponatremia, dilutional. Continue diuretic. 4. Acidosis secondary to renal failure, recovered. Continue to monitor. 5. Urinary retention. Bladder scan will be done. Continue Flomax. Villa catheter at this point was removed. ORTEGA/LAURIE Voice ID: [id number] Report ID: [id number]
[2024-12-13 06:21] LABS: Albumin 2.7 g/dL (3.4-5.0); Anion Gap 11.9 mEq/L (5.0-15.0); Phosphorus 3.5 mg/dL (2.5-4.9); Potassium 3.9 mEq/L (3.5-5.1)
[2024-12-13] MEDS: POTASSIUM CL SA 10 MEQ TAB PO ONE (08:28)
[2024-12-13] MEDS: lisinopriL 20 MG TAB PO SCH (08:28)
--- NOTE | 2024-12-13 10:29 | P.DS ---
Admission Date: 12/10/24 Discharge Date: 12/13/24 Disposition: ROUTINE DISCHARGE Discharge Condition: GOOD Reason for Admission: Hyperkalemia /KATE Brief History of Present Illness: Patient is an 79-year-old gentleman who came to the hospital with hyperkalemia along with hyponatremia and KATE on RACHELE inhibitor and torsemide. Hospital Course: Patient was treated with IV fluids, his lisinopril and torsemide were held and Villa catheter was inserted. Patient's electrolytes have improved. Renal function continued to improve Patient is making a lot of urine output at this time. However, when Villa catheter was removed patient was not able to void and required reinsertion of indwelling Villa catheter. Finasteride and tamsulosin were started. He is being discharged home today with indwelling Villa catheter. He is to follow-up with his own special forces weapons sergeant and urologist as outpatient. #1 KATE and moderate hyperkalemia due to urinary retention with ACEI inhibitor and diuretic Improving, serum potassium down to 3.9 from 6.3, serum creatinine continued to trending down to 1.79, urine output almost 3 L later over the past 24-hour, no UTI by UA, lisinopril and diuretic resumed #2 acute urinary retention likely due to BPH with bladder outlet obstruction With Villa catheter, follow-up with urologist as outpatient, Flomax and Proscar were initiated #3 uncontrolled hypertension His hypertensive regimen titrate up. #4 asymptomatic frequent PVC on telemetry History of asymptomatic PVC for a long time, he sees his own special forces weapons sergeant in [place] Normokalemia, normal magnesium, carvedilol titrated up to 25 mg twice daily #5 xerotic dermatitis of both shines Topical moisturizer, no antibiotics indicated Vital Signs/Physical Exam: Temp Pulse Resp BP Pulse Ox 97.7 F 60 18 182/92 H 95 12/13/24 08:00 12/13/24 08:28 12/13/24 08:00 12/13/24 08:28 12/13/24 08:00 Other Physical/Emotional Findings: - Physical Exam. General: Not acutely ill looking, in no apparent distress,. HEENT: Normocephalic, atraumatic, nonicteric sclera, nonanemic conjunctive. Neck: Supple, without JVD or goiter or thyroid mass. Respiratory: Normal breathing effort, clear to auscultation bilaterally, no crackles no wheezing or rhonchi. Cardiovascular: Regular rate and rhythm, S1, S2 normal, no murmur no gallop. Gastrointestinal: Normal bowel sounds, nondistended, nontender, No ascites, , No masses, no hepatosplenomegaly. Extremities : No clubbing, No peripheral edema, urine bag containing dwight- colored urine,. Integumentary: No rashes, petechia, suspected lesions. Lymphatics: No axilla or cervical lymphadenopathy. Neurology; alert awake oriented x3, no focal neurologic deficit, normal affection . mood and behavior. Laboratory Data at Discharge: WBC 17.60 thou/uL (4.3-10.9) H 12/11/24 11:30 Hgb 12.9 g/dL (13.6-17.9) L 12/11/24 11:30 Hct 37.7 % (39.6-49.0) L 12/11/24 11:30 Plt Count 428 thou/uL (152-406) H 12/11/24 11:30 PT Cancelled 12/09/24 23:14 INR Cancelled 12/09/24 23:14 APTT 28.6 SECONDS (24.3-36.9) 12/09/24 23:14 Sodium 130 mEq/L (136-145) L 12/13/24 05:44 Potassium 3.9 mEq/L (3.5-5.1) D 12/13/24 05:44 BUN 31 mg/dL (7-18) H 12/13/24 05:44 Creatinine 1.79 mg/dL (0.70-1.30) H 12/13/24 05:44 Glucose 110 mg/dL (74-106) H 12/13/24 05:44 Phosphorus 3.5 mg/dL (2.5-4.9) 12/13/24 05:44 Magnesium 1.9 mg/dL (1.6-2.4) 12/11/24 11:30 Total Bilirubin 0.5 mg/dL (0.2-1.0) 12/11/24 11:30 AST 14 U/L (15-37) L 12/11/24 11:30 ALT 15 U/L (16-61) L 12/11/24 11:30 Alkaline Phosphatase 91 U/L (45-117) 12/11/24 11:30 Home Medications: Lisinopril [Zestril] 1 tab PO BID 05/13/21 Torsemide 10 mg PO DAILY #30 tablet 05/14/21 Amlodipine Besylate [Norvasc] 2.5 mg PO DAILY 12/10/24 Atorvastatin Calcium [Lipitor] 40 mg PO BEDTIME 12/10/24 Nystatin Powder [Mycostatin (Powder)*] 1 appl TOP BID #1 bottle 12/11/24 Tamsulosin [Flomax*] 0.4 mg PO BEDTIME #30 cap 12/11/24 Finasteride [Proscar] 5 mg PO DAILY #30 tab 12/13/24 Tamsulosin [Flomax*] 0.4 mg PO 1800 cap 12/13/24 carvediloL [Coreg*] 25 mg PO BID #30 tab 12/13/24 lisinopriL [Prinivil*] 20 mg PO DAILY tab 12/13/24 New Medications: carvediloL [Coreg*] 25 mg PO BID #30 tab Tamsulosin [Flomax*] 0.4 mg PO BEDTIME #30 cap Nystatin Powder [Mycostatin (Powder)*] 1 appl TOP BID #1 bottle Finasteride [Proscar] 5 mg PO DAILY #30 tab Physician Discharge Instructions: Please give patient lists of urologist in the area Educated family member to take care of indwelling Villa catheter with leg bag Diet: Renal Activity: Fall precautions Followup: Tom Martel MD [ACTIVE - CAN ADMIT] - ZULEYKA GARDINER [Primary Care Provider] - Suresh Rider [ACTIVE - CAN ADMIT] - Reji Hope FNP [OUTSIDE PHYSICIAN] -
[2024-12-13 11:38] VITALS: O2SAT 96
--- NOTE | 2024-12-13 11:40 | P.PN ---
Subjective Date of Service: 12/13/24 Chief Complaint: Hyperkalemia /KATE Subjective: No new changes, No C/O voiced, Tolerating diet, Ambulating, Improving Review of Systems 10-point ROS is otherwise unremarkable Physical Examination - Vital Signs Temperature: 97.7 F Blood Pressure: 182/92 Pulse: 60 Respirations: 18 Pulse Ox (%): 95 - Physical Exam General: Alert, In no apparent distress HEENT: Atraumatic, PERRLA, EOMI Neck: Supple, JVD not distended Respiratory: Clear to auscultation bilaterally, Normal air movement Cardiovascular: Regular rate/rhythm, Normal S1 S2 Gastrointestinal: Normal bowel sounds, No tenderness Musculoskeletal: No tenderness Integumentary: No rashes Neurological: Normal speech, Normal tone, Normal affect Lymphatics: No axilla or inguinal lymphadenopathy Other Physical/Emotional Findings: - Physical Exam. General: Not acutely ill looking, in no apparent distress,. HEENT: Normocephalic, atraumatic, nonicteric sclera, nonanemic conjunctive. Neck: Supple, without JVD or goiter or thyroid mass. Respiratory: Normal breathing effort, clear to auscultation bilaterally, no crackles no wheezing or rhonchi. Cardiovascular: Regular rate and rhythm, S1, S2 normal, no murmur no gallop. Gastrointestinal: Normal bowel sounds, nondistended, nontender, No ascites, , No masses, no hepatosplenomegaly. Extremities : No clubbing, No peripheral edema, urine bag containing dwight-colored urine,. Integumentary: No rashes, petechia, suspected lesions. Lymphatics: No axilla or cervical lymphadenopathy. Neurology; alert awake oriented x3, no focal neurologic deficit, normal affection . mood and behavior. - Studies Medications List Reviewed: Yes Assessment And Plan - Current Problems (Diagnosis) (1) PVC (premature ventricular contraction) Current Visit: Yes Status: Acute Plan: Patient usually sees a workforce development vice president in [facility], mention that he had those PVCs for a long period of time, no symptoms. agree with increasing Coreg to 25 mg po BID. PVC burden is better on telemetery outpatient follow up with cardiology will sign off.
[2024-12-13 12:49] VITALS: BP 147/68; TEMP 97.9
--- NOTE | 2024-12-13 12:52 | EKG ---
Test Date: 2024-12-09 Test Time: 22:44:21 [employer] Manager: JARVIS MEASUREMENT RESULTS: Intervals: Rate: 71 LA: 170 QRSD: 92 QT: 382 QTc: 415 [place]: P: -6 LA: 170 QRS: -68 T: 53 INTERPRETIVE STATEMENTS: Normal sinus rhythm Left axis deviation Abnormal ECG Compared to ECG 03/05/2022 02:08:08 Left-axis deviation now present Myocardial infarct finding no longer present Electronically Signed On 12-13-24 12:45:24 ACTIVATED SLUDGE OPERATOR by Jesús Muller
--- NOTE | 2024-12-13 13:35 | ECHO ---
HEIGHT: 5 ft 11 in WEIGHT: 200 lb 0 oz DATE OF STUDY: 12/12/[address]: Zhen Jose DO 2-DIMENSIONAL: YES M.MODE: YES DOPPLER: YES COLOR FLOW: YES TDS: YES PORTABLE: YES DEFINITY: BUBBLE STUDY: DIAGNOSIS: CONGESTIVE HEART FAILURE CARDIAC HISTORY: CATHERIZATION: NO SURGERY: NO PROSTHETIC VALVE: NO PACEMAKER: NO MEASUREMENTS (cm) DIASTOLIC (NORMALS) SYSTOLIC (NORMALS) IVSd 1.0 (0.6-1.2) LA Diam 2.5 (1.9-4.0) LVEF 50-55% LVIDd 2.5 (3.5-5.7) LVIDs 1.9 (2.0-3.5) %FS 24% LVPWd 1.0 (0.6-1.2) Ao Diam 2.3 (2.0-3.7) 2 DIMENSIONAL ASSESSMENT: RIGHT ATRIUM: NOT WELL VISUALIZED LEFT ATRIUM: NOT WELL VISUALIZED RIGHT VENTRICLE: NORMAL LEFT VENTRICLE: NORMAL TRICUSPID VALVE: TRACE TRICUSPID REGURGITATION MITRAL VALVE: NORMAL PULMONIC VALVE: NORMAL AORTIC VALVE: NORMAL PERICARDIAL EFFUSION: NONE AORTIC ROOT: NORMAL LEFT VENTRICULAR WALL MOTION: NORMAL DOPPLER/COLOR FLOW: DIASTOLIC DYSFUNCTION COMMENTS: 1. TECHNICALLY DIFFICULT STUDY WITH LIMITED IMAGES 2. OVERALL LEFT VENTRICULAR FUNCTION LOOKD NORMAL, EJECTION FRACTION 50-55%, NORMAL WALL MOTION 3. DIASTOLIC DYSFUNCTION TECHNOLOGIST: BONILLA VOGEL
== END 2024-12-13 16:08 | disposition home or self-care (01) | DRG 682 ==
LOC: ER 18:05 → ERHOLD 12-10 03:35 → 4TH 12-10 07:33
PROVIDERS: ADMIT Family Medicine; ATTEND Internal Medicine
PROC: 0T9B70Z Drainage of Bladder with Drainage Device, Via Natural or Artificial Opening (ICD-10-PCS; principal; 2024-12-11)
DX: N17.9 Acute kidney failure, unspecified (principal); I50.33 Acute on chronic diastolic (congestive) heart failure; E87.1 Hypo-osmolality and hyponatremia; I13.0 Hypertensive heart and chronic kidney disease with heart failure and stage 1 through stage 4 chronic kidney disease, or unspecified chronic kidney disease; E87.20 Acidosis, unspecified; N13.8 Other obstructive and reflux uropathy; N18.2 Chronic kidney disease, stage 2 (mild); N40.1 Benign prostatic hyperplasia with lower urinary tract symptoms; E87.5 Hyperkalemia; E87.6 Hypokalemia; L30.8 Other specified dermatitis; R33.8 Other retention of urine; I49.3 Ventricular premature depolarization; Z79.52 Long term (current) use of systemic steroids; Z79.02 Long term (current) use of antithrombotics/antiplatelets; Z79.899 Other long term (current) drug therapy
CPT/HCPCS: 36415; 51702; 71045; 76770; 80048; 80053; 80069; 80076; 81001; 82533; 82550; 82570; 82947; 83605; 83735; 83880; 83970; 84100; 84132; 84156; 84300; 84443; 84484; 85025; 85610; 85730; 87040; 93005; 93306; 93970; 96365; 96366; 96372; 96375; 97110; 97161; 97530; 99285; J0612; J0692; J0696; J1644; J1940; J2919; J7030; J7040; J7613